=== PATIENT | male | born 1950 | race Caucasian/White ===

== ENCOUNTER 2016-07-10 09:00 | Day surgery (SDC) | payer MEDICARE ==
[2016-07-05 15:54] VITALS: BMI 24.3
[~2016-07-10 09:00] MED LIST: LACTATED RINGERS 1,000 ML IV SCH
[2016-07-10] MEDS ORDERED: LIDOCAINE 1% 20 ML VIAL (10MG/ML) FOR IV START INTRADERMA ONE (11:52)
[2016-07-10 12:00] VITALS: RESP 16; TEMP 97.7
[2016-07-10] MEDS ORDERED: PROPOFOL 10 MG/ML 20 ML VIAL IV ONE (12:55)
--- NOTE | 2016-07-10 12:58 | P.GSHP ---
History of Present Illness H&P Date: 07/10/16 Chief Complaint: Screening colonoscopy This a 66-year-old male who presents today for screening colonoscopy. Patient states that he has a history of hemorrhoids as had some minor rectal bleeding. Past Medical History Past Medical History: Hyperlipidemia, Hypertension, Myocardial Infarction ([place]) Last Myocardial Infarction Date:: 1990 History of Any Multi-Drug Resistant Organisms: None Reported Past Surgical History: Appendectomy, Heart Catheterization, Tonsillectomy Additional Past Surgical History / Comment(s): colonoscopy; hemorroidectomy Past Anesthesia/Blood Transfusion Reactions: No Reported Reaction Smoking Status: Former smoker Past Alcohol Use History: Daily Additional Past Alcohol Use History / Comment(s): 4 beers a night Past Drug Use History: None Reported - Past Family History Mother Family Medical History: No Reported History Medications and Allergies Home Medications Medication Instructions Recorded Confirmed Type Aspirin [Adult Low Dose Aspirin EC] 81 mg PO DAILY 07/05/16 07/10/16 History Atenolol [Tenormin] 100 mg PO DAILY 07/05/16 07/10/16 History Isosorbide Mononitrate ER [Imdur] 60 mg PO DAILY 07/05/16 07/10/16 History Lisinopril [Zestril] 20 mg PO DAILY 07/05/16 07/10/16 History Lovastatin [Mevacor] 40 mg PO DAILY 07/05/16 07/10/16 History Verapamil HCl [Verapamil ER] 120 mg PO DAILY 07/05/16 07/10/16 History Allergies Allergy/AdvReac Type Severity Reaction Status Date / Time No Known Allergies Allergy Verified 07/05/16 15:47 Surgical - Exam Vital Signs Temp Pulse Resp BP Pulse Ox 97.7 F 54 L 16 188/89 95 07/10/16 11:56 07/10/16 11:56 07/10/16 11:56 07/10/16 11:56 07/10/16 11:56 - General well developed, no distress - Eyes PERRL - ENT normal pinna - Neck no masses - Respiratory normal expansion - Cardiovascular Rhythm: regular - Abdomen Abdomen: soft, non tender Assessment and Plan Plan: History of GI bleed. We'll perform screening colonoscopy.
--- NOTE | 2016-07-10 13:10 | P.OP ---
Date of Procedure: 07/10/16 Preoperative Diagnosis: Screening colonoscopy Postoperative Diagnosis: External hemorrhoids Diverticulosis Procedure(s) Performed: Colonoscopy Anesthesia: MAC Surgeon: Allan Santoro Pathology: none sent Condition: stable Disposition: PACU Description of Procedure: The patient's placed on the endoscopy table in the lateral position. He received IV sedation. Digital rectal exam is performed which revealed external hemorrhoids. The prostate was symmetric without nodules. The flexible colonoscope was then placed patient anus passed throughout the entire colon. The ileocecal valve was visualized. The cecum, ascending and transverse colon appeared normal. In the descending; there is moderate diverticular changes. Scope was then brought back the rectum and this appeared normal. Scope was withdrawn for patient.
[2016-07-10 13:36] VITALS: BP 119/83; PULSE 57
== END 2016-07-10 13:50 | disposition home or self-care (01) ==
LOC: ORWHC2ENDO 09:00
PROVIDERS: ATTEND Surgery
DX: Z12.11 Encounter for screening for malignant neoplasm of colon (principal); K64.4 Residual hemorrhoidal skin tags; I25.10 Atherosclerotic heart disease of native coronary artery without angina pectoris; E78.5 Hyperlipidemia, unspecified; I10 Essential (primary) hypertension; I25.2 Old myocardial infarction; F17.210 Nicotine dependence, cigarettes, uncomplicated; Z79.82 Long term (current) use of aspirin; Z79.899 Other long term (current) drug therapy
CPT/HCPCS: J2704; G0121

== ENCOUNTER → 2016-09-17 | Outpatient (CLI) | payer MEDICARE ==
--- NOTE | 2016-09-17 17:58 | CT ---
EXAMINATION TYPE: CT brain wo con DATE OF EXAM: 09/17/2016 COMPARISON: NONE HISTORY: Memory loss CT DLP: 2247 mGycm Automated exposure control for dose reduction was used. FINDINGS: There is mild cerebral cortical atrophy. There is no mass effect nor midline shift. There is no sign of intracranial hemorrhage. Calvarium is intact. IMPRESSION: MILD ATROPHY. NO ACUTE INTRACRANIAL ABNORMALITY.
--- NOTE | 2016-09-17 18:19 | US ---
EXAMINATION TYPE: US carotid duplex BILAT DATE OF EXAM: 09/17/2016 COMPARISON: NONE CLINICAL HISTORY: R41.3 Memory loss. EXAM MEASUREMENTS: RIGHT: Peak Systolic Velocity (PSV) cm/sec ----- Right CCA: 80.3 ----- Right ICA: 82.2 ----- Right ECA: 61.2 ICA/CCA ratio: 1.0 RIGHT: End Diastole cm/sec ----- Right CCA: 27.3 ----- Right ICA: 33.7 ----- Right ECA: 15.0 LEFT: Peak Systolic Velocity (PSV) cm/sec ----- Left CCA: 77.2 ----- Left ICA: 95.3 ----- Left ECA: 95.3 ICA/CCA ratio: 1.2 LEFT: End Diastole cm/sec ----- Left CCA: 26.7 ----- Left ICA: 35.8 ----- Left ECA: 17.6 VERTEBRALS (direction of flow): Right Vertebral: Antegrade Left Vertebral: Antegrade Moderate amount of plaque visualized in bilateral bulbs. No elevated velocities visualized IMPRESSION: There is antegrade flow in the vertebral arteries. The images and measurements suggest c lose to 50% stenosis in both internal carotid arteries. Criteria for Assigning % of Stenosis / Diameter reduction (Estimation based on the indirect measurements of the internal carotid artery velocities (ICA PSV). 1. Normal (no stenosis)=ICA PSV < 125 cm/s: ratio < 2.0: ICA EDV<40 cm/s. 2. Less than 50% stenosis=ICA PSV < 125 cm/s: ratio < 2.0: ICA EDV<40 cm/s. 3. 50 to 69% stenosis=ICA PSV of 125 to 230 cm/s: ration 2.0 ? 4.0: ICA EDV 40-100 cm/s. 4. Greater than 70% stenosis to near occlusion= ICA PSV > 230 cm/s: ratio > 4.0: ICA EDV > 100 cm/s. 5. Near occlusion= ICA PSV velocities may be low or undetectable: variable ratio and ICA EDV. 6. Total occlusion=unable to detect flow.
== END ==
LOC: RADCTMAIN 17:27
PROVIDERS: ATTEND Family Medicine
DX: I65.23 Occlusion and stenosis of bilateral carotid arteries (principal); G31.9 Degenerative disease of nervous system, unspecified
CPT/HCPCS: 70450; 93880

== ENCOUNTER → 2016-11-28 | Outpatient (CLI) | payer MEDICARE ==
[2016-11-28 18:13] LABS: ANA w/Reflex to Titer NEGATIVE (NEGATIVE)
== END | disposition home or self-care (01) ==
LOC: LABWHC1 11-22 12:49
PROVIDERS: ATTEND Psychiatry & Neurology Neurology
DX: R41.3 Other amnesia (principal); M54.2 Cervicalgia
CPT/HCPCS: 36415; 82550; 82607; 82747; 84439; 84443; 85652; 86038; 86618

== ENCOUNTER → 2018-11-20 | Outpatient (CLI) | payer MEDICARE ==
--- NOTE | 2018-11-20 09:08 | CT ---
EXAMINATION TYPE: CT abdomen pelvis wo con DATE OF EXAM: 11/20/2018 COMPARISON: None HISTORY: 68-year-old male Ventral hernia, diverticulitis CT DLP: 272.2 mGycm. Automated exposure control for dose reduction was used. TECHNIQUE: Contiguous axial scanning of the abdomen and pelvis without IV contrast. Coronal and sagit oniel reconstructions performed. FINDINGS: Heart normal size without pericardial effusion. Some mitral annular and scattered coronary vessel narendra cifications are demonstrated. Irregular 1 cm nodular density left base warrants follow-up. No pleural effusion. Small hiatal hernia. Ovoid 2.7 x 1.4 cm hypodensity anterior left liver lobe shows intermediate attenuation and can be fur ther evaluated with ultrasound. A 1 cm round hypodense lesion just above likely represents a cyst. Gallbladder, right adrenal gland, kidneys, spleen, and pancreas show no gross amount by noncontrast C T. Mild diffuse thickening of the left adrenal gland without discrete nodularity. Moderate atherosclerotic calcifications abdominal aorta and iliac arteries. There is a 2.3 cm focal s accular aneurysm of the proximal right common iliac artery (refer to sagittal image 52). No dilated small bowel, free fluid, or free air. Scattered nonenlarged mesenteric lymph nodes. Appendix not discretely visualized. Scattered multiple moderate stool. Mid to lower descending and si gmoid colonic diverticulosis. No pericolonic inflammatory change. No ventral abdominal wall hernia. Mild circumferential bladder wall thickening. Pelvic fluids. No abnormal fluid collection in the pelv is or pelvic lymphadenopathy. Suggestion of a moderate-sized fluid collection in the upper left hemiscrotum measuring 3.7 cm, refer to axial image 126 and coronal image 26. Bones: Mild degenerative changes of the hips. Moderate to advanced degenerative disc disease mid to l ower lumbar spine along with hypertrophic facet arthropathy. Baastrup's disease L4-L5. IMPRESSION: 1. Left-sided colonic diverticulosis without acute diverticulitis. 2. A 2.7 x 1.4 cm ovoid indeterminate lesion anterior left hepatic lobe. An area of focal fat or com plicated cyst are possibilities. Other etiologies not excluded. Recommend liver ultrasound as an init ial attempt to further characterize. 3. Small hiatal hernia. No ventral abdominal wall hernia. 4. Moderate-sized fluid collection in the upper left hemiscrotum measuring 3.7 cm, possible hydrocel e. If indicated, scrotal ultrasound can further evaluate. 5. A 1 cm irregular nodule at the left base. Three-month follow-up contrast enhanced CT chest recomm ended to reassess. 6. 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 Consider referral to vascular surgery.
== END ==
LOC: RADCTMAIN 08:17
PROVIDERS: ATTEND Surgery Plastic and Reconstructive Surgery
DX: K57.30 Diverticulosis of large intestine without perforation or abscess without bleeding (principal); K44.9 Diaphragmatic hernia without obstruction or gangrene; K92.89 Other specified diseases of the digestive system; I72.3 Aneurysm of iliac artery
CPT/HCPCS: 74176

== ENCOUNTER 2018-12-03 08:18 | Day surgery (SDC) | payer MEDICARE ==
[2018-12-01 10:03] VITALS: BMI 23.9
[~2018-12-03 08:18] MED LIST changes: +DEXAMETHASONE SOD PHOSPHATE 10 MG/ML 1 ML VIAL IV ONE; +LIDOCAINE 1% 20 ML VIAL (10MG/ML) FOR IV START INTRADERMA PRN; +MIDAZOLAM 2 MG/2 ML VIAL IV PRN; +fentaNYL (PF) 50 MCG/ML 2 ML AMP IV PRN
[2018-12-03 08:49] VITALS: TEMP 97.8
--- NOTE | 2018-12-03 08:51 | P.GSHP ---
History of Present Illness H&P Date: 12/03/18 CHIEF COMPLAINT: GERD HISTORY OF PRESENT ILLNESS: The patient is a 68-year-old male who presents reports gastroesophageal reflux disease. Upper endoscopy was offered for further evaluation and management. PAST MEDICAL HISTORY: Please see list. PAST SURGICAL HISTORY: Please see list. MEDICATIONS: Please see list. ALLERGIES: Please see list. SOCIAL HISTORY: No illicit drug use FAMILY HISTORY: No reports of Crohn disease or ulcerative colitis. REVIEW OF ORGAN SYSTEMS: CONSTITUTIONAL: No reports of fevers or chills. GI: Denies any blood in stools or constipation. PHYSICAL EXAM: VITAL SIGNS: Stable GENERAL: Well-developed and pleasant in no acute distress. HEENT: No scleral icterus. Extraocular movements grossly intact. Moist buccal mucosa. NECK: Supple without lymphadenopathy. CHEST: Unlabored respirations. Equal bilateral excursions. CARDIOVASCULAR: Regular rate and rhythm. Distal 2+ pulses. ABDOMEN: Soft, nondistended. MUSCULOSKELETAL: No clubbing, cyanosis, or edema. ASSESSMENT: 1. Gastroesophageal reflux disease PLAN: 1. Recommend proceeding with an upper endoscopy Past Medical History Past Medical History: Hyperlipidemia, Hypertension, Myocardial Infarction ([place]), Osteoarthritis ([place]) Last Myocardial Infarction Date:: 1998 History of Any Multi-Drug Resistant Organisms: None Reported Past Surgical History: Appendectomy, Heart Catheterization, Tonsillectomy Additional Past Surgical History / Comment(s): colonoscopy; hemorroidectomy Past Anesthesia/Blood Transfusion Reactions: No Reported Reaction Past Psychological History: No Psychological Hx Reported Smoking Status: Former smoker Past Alcohol Use History: Daily Additional Past Alcohol Use History / Comment(s): states recently stopped alcohol use, Hx of 4 beers a night, 6 on weekend. QUIT SMOKING 8 MONTHS AGO,SMOKED ON AND OFF SINCE 14 YRS OLD. Past Drug Use History: Marijuana Additional Drug Use History / Comment(s): states no current marijuana use - Past Family History Mother Family Medical History: No Reported History Medications and Allergies Home Medications Medication Instructions Recorded Confirmed Type Aspirin [Adult Low Dose Aspirin EC] 81 mg PO DAILY 07/05/16 12/01/18 History Atenolol [Tenormin] 100 mg PO DAILY 07/05/16 12/01/18 History Isosorbide Mononitrate ER [Imdur] 60 mg PO DAILY 07/05/16 12/01/18 History Lisinopril [Zestril] 20 mg PO DAILY 07/05/16 12/01/18 History Verapamil HCl [Verapamil ER] 120 mg PO DAILY 07/05/16 12/01/18 History Atorvastatin [Lipitor] 40 mg PO DAILY 12/01/18 12/01/18 History Ibuprofen 200 mg PO DIRECTED PRN 12/01/18 12/01/18 History Potassium 99 mg PO DAILY 12/01/18 12/01/18 History Vit A/Vit C/Vit E/Zinc/Copper 1 each PO DAILY 12/01/18 12/01/18 History [Vision Formula Softgel] Allergies Allergy/AdvReac Type Severity Reaction Status Date / Time No Known Allergies Allergy Verified 12/03/18 08:31 Surgical - Exam Vital Signs Temp Pulse Resp BP Pulse Ox 97.8 F 62 16 211/103 97 12/03/18 08:45 12/03/18 08:45 12/03/18 08:45 12/03/18 08:45 12/03/18 08:45
[2018-12-03] MEDS ORDERED: PROPOFOL 10 MG/ML 20 ML VIAL IV ONE (08:56)
--- NOTE | 2018-12-03 09:09 | P.PCN ---
Date of Procedure: 12/03/18 Description of Procedure: PREOPERATIVE DIAGNOSIS: Gastroesophageal reflux disease. POSTOPERATIVE DIAGNOSIS: Gastritis. Gastroesophageal reflux disease. Diaphragmatic hiatal hernia OPERATION: Esophagogastroduodenoscopy with biopsies along antrum. SURGEON: Alva Haider MD ANESTHESIA: MAC. INDICATIONS: The patient is a 68-year-old male who presents with a history of reflux disease. Benefits and risks of the procedure were described. Informed consent was obtained. DESCRIPTION: The patient was brought into the endoscopy suite and laid in the left lateral decubitus position. An Olympus gastroscope was passed along the posterior oropharynx down to the distal esophagus where the squamocolumnar junction was encountered at 37 cm from the incisors. The stomach was entered and no bile reflux was found. Additional findings are listed below. Biopsies with cold forceps were obtained of the antrum. The first through third portion of the duodenum was examined and unremarkable. Retroflexion of the scope confirmed Hill grade 4 lower esophageal valve. The squamocolumnar junction demonstrated LA grade B erosive esophagitis. The stomach was desufflated. The patient tolerated the procedure well. FINDINGS: Squamocolumnar junction 37 cm from the incisors. Diaphragmatic hiatus at 40 cm. Hiatal hernia, 3 cm Hill grade 4 lower esophageal valve. LA grade B erosive esophagitis. No active duodenitis. Chronic gastritis without bleed RECOMMENDATIONS: Upper endoscopy as needed. Plan - Discharge Summary New Discharge Prescriptions: New Omeprazole 20 mg PO DAILY #14 tablet.dr No Action Lisinopril [Zestril] 20 mg PO DAILY Isosorbide Mononitrate ER [Imdur] 60 mg PO DAILY Atenolol [Tenormin] 100 mg PO DAILY Verapamil HCl [Verapamil ER] 120 mg PO DAILY Aspirin [Adult Low Dose Aspirin EC] 81 mg PO DAILY Ibuprofen 200 mg PO DIRECTED PRN PRN Reason: Pain Vit A/Vit C/Vit E/Zinc/Copper [Vision Formula Softgel] 1 each PO DAILY Potassium 99 mg PO DAILY Atorvastatin [Lipitor] 40 mg PO DAILY Discharge Medication List Aspirin [Adult Low Dose Aspirin EC] 81 mg PO DAILY 07/05/16 [History] Atenolol [Tenormin] 100 mg PO DAILY 07/05/16 [History] Isosorbide Mononitrate ER [Imdur] 60 mg PO DAILY 07/05/16 [History] Lisinopril [Zestril] 20 mg PO DAILY 07/05/16 [History] Verapamil HCl [Verapamil ER] 120 mg PO DAILY 07/05/16 [History] Atorvastatin [Lipitor] 40 mg PO DAILY 12/01/18 [History] Ibuprofen 200 mg PO DIRECTED PRN 12/01/18 [History] Potassium 99 mg PO DAILY 12/01/18 [History] Vit A/Vit C/Vit E/Zinc/Copper [Vision Formula Softgel] 1 each PO DAILY 12/01/18 [History] Omeprazole 20 mg PO DAILY #14 tablet. 12/03/18 [Rx] Follow up Appointment(s)/Referral(s): Alva Haider MD [STAFF PHYSICIAN] - 12/16/18 Patient Instructions/Handouts: Hiatal Hernia (DC), Gastritis (DC), Gastroesophageal Reflux Disease (DC) Discharge Disposition: HOME SELF-CARE
[2018-12-03 09:26] VITALS: RESP 17
[2018-12-03 09:51] VITALS: BP 122/75; PULSE 59
== END 2018-12-03 09:49 | disposition home or self-care (01) ==
LOC: ORWHC2ENDO 08:18
PROVIDERS: ATTEND Surgery Plastic and Reconstructive Surgery
DX: K21.0 Gastro-esophageal reflux disease with esophagitis (principal); K31.9 Disease of stomach and duodenum, unspecified; K29.70 Gastritis, unspecified, without bleeding; K44.9 Diaphragmatic hernia without obstruction or gangrene; E78.5 Hyperlipidemia, unspecified; I10 Essential (primary) hypertension; I25.2 Old myocardial infarction; M19.90 Unspecified osteoarthritis, unspecified site; Z79.82 Long term (current) use of aspirin; Z79.899 Other long term (current) drug therapy; Z87.891 Personal history of nicotine dependence; Z79.1 Long term (current) use of non-steroidal anti-inflammatories (NSAID)
CPT/HCPCS: 88305; 43239; J2704

== ENCOUNTER → 2019-01-15 | Outpatient (CLI) | payer MEDICARE ==
[2019-01-15 14:43] LABS: African American GFR (CKD) >90 (>60 ml/min/1.73 sqM); Blood Urea Nitrogen 13 mg/dL (9-20)
--- NOTE | 2019-01-15 16:06 | CT ---
EXAMINATION TYPE: CT chest w con DATE OF EXAM: 01/15/2019 COMPARISON: Correlation CT abdomen and pelvis 11/20/2018 HISTORY: 68-year-old male Lung nodule TECHNIQUE: Contiguous axial scanning of the chest after the administration of 100 mL of Isovue 300. Coronal/sagittal reconstructions performed. CT DLP: 442mGycm. Automatic exposure control utilized for a dose reduction. FINDINGS: Heart normal size without pericardial effusion. Extensive three-vessel coronary artery disease is pre sent. Upper ascending aorta is ectatic at 3.5 cm. Mild atherosclerotic arch calcifications. Conventional ar ch vessel branching anatomy. No thoracic lymphadenopathy by CT size criteria. Moderate upper lung centrilobular emphysema. Mild diffuse bronchial wall thickening. Tiny 2 mm subpleural pulmonary nodule peripheral right upper lobe, axial image 15. A 1 cm irregular pulmonary nodule at the peripheral left lower lobe possibly with a central area of c avitation remains unchanged from 11/20/2018. There is strandy atelectasis or scarring inferior lingula . No consolidation or pleural effusion. Tiny hiatal hernia. Focal ovoid hypodensity anterior left liver lobe measures 4.0 x 1.8 cm versus 3.7 x 1.4 cm on 11/20/2018. This demonstrates intermediate attenuation and may represent a complicated cy st and can be confirmed with ultrasound. Bones: Suspect old healed sternal fracture. No osseous destructive process. IMPRESSION: 1. COPD with moderate upper lung emphysema. 2. Small 1 cm cavitary nodule peripheral left base. Overall size and morphology is unchanged from 2 m onths prior. Continued follow-up recommended. Neoplastic and atypical infectious etiologies remain in the differential at this time. 3. CAD. 4. An ovoid hypodense lesion anterior left liver lobe is slightly larger at 4.0 x 1.8 cm (versus 3.7 x 1.4 mm, 2 months ago). This still may represent a complicated cyst. Ultrasound should confirm.
== END | disposition home or self-care (01) ==
LOC: RADCTMAIN 13:52
PROVIDERS: ATTEND Internal Medicine Critical Care Medicine
DX: J43.9 Emphysema, unspecified (principal); I25.10 Atherosclerotic heart disease of native coronary artery without angina pectoris; R91.1 Solitary pulmonary nodule
CPT/HCPCS: 82565; 84520; 71260; 36415; Q9967

== ENCOUNTER → 2019-01-20 | Outpatient (CLI) | payer MEDICARE ==
--- NOTE | 2019-01-20 10:51 | US ---
EXAMINATION TYPE: US liver DATE OF EXAM: 01/20/2019 COMPARISON: CT 2019 CLINICAL HISTORY: K76.9 LIVER DISEASE. Liver lesion seen on recent CT, patient not NPO EXAM MEASUREMENTS: Liver Length: 14.4 cm Gallbladder Wall: 0.2 cm CBD: 0.5 cm Right Kidney: 10.8 x 4.3 x 4.3 cm Pancreas: visualized portions wnl, limited by overlying midline bowel gas Liver: 2.8 x 1.5 x 4.3cm hypoechoic lesion anterior left lobe. This is avascular. However only minim al increased or transmission is seen in portions of this appears solid. There is also subtle contour abnormality on sagittal image probably not significant stenosis Gallbladder: wnl Evidence for sonographic Johnson's sign: no CBD: wnl Right Kidney: wnl IMPRESSION: The proximally 4.3 cm hepatic mass does not have clear characteristics of a complicated c yst. Given the interval growth since 11/20/2018 further evaluation is recommended. More definitive laura racterization could be performed with enhanced abdominal MRI or PET/CT. Alternatively percutaneous bi opsy could be pursued if the patient cannot undergo MRI.
== END | disposition home or self-care (01) ==
LOC: RADUSWWP 09:33
PROVIDERS: ATTEND Internal Medicine Critical Care Medicine
DX: R16.0 Hepatomegaly, not elsewhere classified (principal)
CPT/HCPCS: 76705

== ENCOUNTER → 2019-01-27 | Outpatient (CLI) | payer MEDICARE ==
[2019-01-27 17:13] LABS: ALT 15 U/L (10-49); AST 19 U/L (14-35); Alkaline Phosphatase 69 U/L (41-126); Bilirubin, Conjugated <0.20 mg/dL (0.20-0.40); Globulin 2.1 g/dL (1.6-3.3); Total Bilirubin 0.6 mg/dL (0.2-1.2); Total Protein 6.3 g/dL (6.2-8.2)
== END | disposition home or self-care (01) ==
LOC: LABWHC1 09:19
PROVIDERS: ATTEND Internal Medicine Critical Care Medicine
DX: R16.0 Hepatomegaly, not elsewhere classified (principal)
CPT/HCPCS: 36415; 80076; 82105

== ENCOUNTER → 2019-02-02 | Outpatient (CLI) | payer MEDICARE ==
--- NOTE | 2019-02-03 04:42 | MR ---
EXAMINATION TYPE: MR liver wo/w con DATE OF EXAM: 02/02/2019 COMPARISON: CT scan 11/20/2018 HISTORY: Abn. CT CONTRAST: Standard multiplanar, multisequence MRI departmental protocol utilizing 7 mL intravenous Gadavist yeison olinium contrast. FINDINGS: There is multilobulated lesion in the anterior right lobe of the liver. This has very high signal on the T2 images and overall measures 3.6 x 2 cm. There are internal septations or is conglome ration of smaller lesions. There is also 12 mm high signal rounded lesion within wall in the anterior right lobe of the liver. The contrast images show the smaller rounded lesion nonenhancing. This has low signal on T1 images. The larger lesion has slight increased signal on the noncontrast images and contrast images show some progressive mild enhancement. The lesions are bright on the out of phase images that suggests no fat content. There is a 5 mm high signal lesion in the lateral right lobe of the liver on the T2 images that is no nenhancing and consistent with a simple cyst. The spleen is intact. Kidneys have normal size and contour. There is normal contrast opacification. T here is no hydronephrosis. There is no retroperitoneal adenopathy. The pancreas appears normal. Pancr eatic duct appears normal. Bile ducts are not dilated. There is no ascites. There is no evidence of p leural effusion. IMPRESSION: There is a 12 mm cyst in the anterior right lobe of the liver. There is a multilobulated larger lesion in the subcapsular anterior right lobe of the liver that has very high signal on T2 images that suggest benign etiology. The lesion shows some mostly mild delayed contrast enhancement at 5 minutes. I think that small portion of the lesion is simple cystic and the bulk of the lesion is an atypical hemangioma. I do not suspect a malignant tumor.
== END | disposition home or self-care (01) ==
LOC: RADMRIMAIN 19:51
PROVIDERS: ATTEND Internal Medicine Critical Care Medicine
DX: K76.89 Other specified diseases of liver (principal); K76.9 Liver disease, unspecified
CPT/HCPCS: 74183; A9585

== ENCOUNTER 2019-05-01 05:57 | Day surgery (SDC) | payer MEDICARE ==
[2019-04-29 15:39] VITALS: BMI 25.7
[~2019-05-01 05:57] MED LIST changes: +HEPARIN SODIUM,PORCINE 5,000 UNIT/ML 1 ML VIAL SQ ONE; -LACTATED RINGERS 1,000 ML IV SCH; -LIDOCAINE 1% 20 ML VIAL (10MG/ML) FOR IV START INTRADERMA PRN; +ONDANSETRON 4 MG/2 ML VIAL IVP ONE; -fentaNYL (PF) 50 MCG/ML 2 ML AMP IV PRN
[2019-05-01] MEDS: LIDOCAINE 1% (10MG/ML) FOR IV START INTRADERMA ONE ×2 (06:30→06:35)
[2019-05-01] MEDS: LACTATED RINGERS 1,000 ML IV SCH ×3 (06:30→07:30)
[2019-05-01] MEDS ORDERED: GABAPENTIN 300 MG CAP PO STA (06:52)
[2019-05-01] MEDS ORDERED: ACETAMINOPHEN TAB 500 MG TAB PO STA (06:52)
[2019-05-01] MEDS ORDERED: TAMSULOSIN 0.4 MG CAP.ER.24H PO STA (06:52)
[2019-05-01] MEDS ORDERED: fentaNYL (PF) 50 MCG/ML 2 ML AMP IVP ONE (07:01)
[2019-05-01] MEDS ORDERED: MIDAZOLAM 2 MG/2 ML VIAL IVP ONE (07:01)
[2019-05-01] MEDS ORDERED: PROPOFOL 10 MG/ML 20 ML VIAL IV ONE (07:21)
[2019-05-01] MEDS ORDERED: NEOSTIGMINE 1 MG/ML 10 ML VIAL ONE (07:21)
[2019-05-01] MEDS ORDERED: DEXAMETHASONE SOD PHOSPHATE 4 MG/ML 1 ML VIAL ONE (07:21)
[2019-05-01] MEDS ORDERED: LIDOCAINE 1% INJ 10MG/ML (20 ML MDV) ONE (07:21)
[2019-05-01] MEDS ORDERED: fentaNYL (PF) 50 MCG/ML 2 ML AMP ONE (07:21)
[2019-05-01] MEDS ORDERED: ROCURONIUM BROMIDE 10 MG/ML 5 ML VIAL IV ONE (07:21)
[2019-05-01] MEDS ORDERED: GLYCOPYRROLATE 0.2 MG/ML 2 ML VIAL ONE (07:21)
[2019-05-01] MEDS ORDERED: SUCCINYLCHOLINE CHLORIDE 100 MG/5 ML SYR IV ONE (07:21)
[2019-05-01] MEDS ORDERED: ROPIVACAINE 5 MG/ML 30 ML VIAL ONE (07:21)
[2019-05-01] MEDS ORDERED: MIDAZOLAM 2 MG/2 ML VIAL ONE (07:21)
--- NOTE | 2019-05-01 07:32 | P.GSHP ---
History of Present Illness H&P Date: 05/01/19 CHIEF COMPLAINT: Inguinal hernia, left HISTORY OF PRESENT ILLNESS: The patient is a 69-year-old male who presents with a history of swelling and pain along the left groin. He's noted increased swelling including pain of the area. Now he presents for repair of his inguinal hernia. PAST MEDICAL HISTORY: Please see list. PAST SURGICAL HISTORY: Please see list. MEDICATIONS: Please see list. ALLERGIES: Please see list. SOCIAL HISTORY: No illicit drug use FAMILY HISTORY: No reports of Crohn disease or ulcerative colitis. REVIEW OF ORGAN SYSTEMS: CONSTITUTIONAL: No reports of fevers or chills. No reports of weight loss despite prior attempts. GI: Denies any blood in stools or constipation. PHYSICAL EXAM: VITAL SIGNS: Stable GENERAL: Well-developed pleasant male in no acute distress. HEENT: No scleral icterus. Extraocular movements grossly intact. Moist buccal mucosa. NECK: Supple without lymphadenopathy. CHEST: Unlabored respirations. Equal bilateral excursions. CARDIOVASCULAR: Regular rate and rhythm. Distal 2+ pulses. ABDOMEN: Soft, nondistended. No peritoneal signs. Palpable defect of the left groin. MUSCULOSKELETAL: No clubbing, cyanosis, or edema. ASSESSMENT: 1. Inguinal hernia, rleft PLAN: 1. Recommend proceeding with a robotic inguinal repair with mesh with possible bilateral approach. 2. Benefits and risks of surgical intervention was discussed including possibility of open technique. 3. DVT prophylaxis. 4. Antibiotic prophylaxis. Past Medical History Past Medical History: Hyperlipidemia, Hypertension, Myocardial Infarction ([place]), Osteoarthritis (OA), Skin Disorder Additional Past Medical History / Comment(s): hx eczema, Last Myocardial Infarction Date:: 1998 History of Any Multi-Drug Resistant Organisms: None Reported Past Surgical History: Adenoidectomy, Appendectomy, Heart Catheterization, Tonsillectomy Additional Past Surgical History / Comment(s): colonoscopy; hemorroidectomy Past Anesthesia/Blood Transfusion Reactions: No Reported Reaction Smoking Status: Former smoker - Past Family History Mother Family Medical History: No Reported History Medications and Allergies Home Medications Medication Instructions Recorded Confirmed Type Aspirin [Adult Low Dose Aspirin EC] 81 mg PO DAILY 07/05/16 05/01/19 History Atenolol [Tenormin] 100 mg PO DAILY 07/05/16 05/01/19 History Isosorbide Mononitrate ER [Imdur] 60 mg PO DAILY 07/05/16 05/01/19 History Lisinopril [Zestril] 20 mg PO DAILY 07/05/16 05/01/19 History Verapamil HCl [Verapamil ER] 120 mg PO DAILY 07/05/16 05/01/19 History Atorvastatin [Lipitor] 40 mg PO DAILY 12/01/18 05/01/19 History Potassium 99 mg PO DAILY 12/01/18 05/01/19 History Vit A/Vit C/Vit E/Zinc/Copper 1 each PO DAILY 12/01/18 05/01/19 History [Vision Formula Softgel] Allergies Allergy/AdvReac Type Severity Reaction Status Date / Time No Known Allergies Allergy Verified 05/01/19 06:35 Surgical - Exam Vital Signs Temp Pulse Resp BP Pulse Ox 98.4 F 65 18 185/97 94 L 05/01/19 06:28 05/01/19 06:28 05/01/19 06:28 05/01/19 06:28 05/01/19 06:28
--- NOTE | 2019-05-01 07:37 | P.ANPRN ---
Procedure Note - Anesthesia - Nerve Block Performed Left Transversus Abdominis Single Time Out Performed: Yes Date of Procedure: 05/01/19 Procedure Start Time: 07:00 Procedure Stop Time: 07:08 Location of Patient: PreOp Indication: Requested by Surgeon Specifically requested for management of pain by DrAlma: Alva Haidre Sedation Type: Sedate with meaningful contact maintained Preparation: Sterile Prep Position: Supine Needle Types: Pajunk Needle Gauge: 21 Ultrasound used to visualize needle placement: Yes Ultrasound used to observe medication spread: Yes Injectate: 0.5% Ropivacaine (see comment for volume) (Dexamethasone 4 mg) Blood Aspirated: No Pain Paresthesia on Injection Noted: No Resistance on Injection: Normal Image Stored and Saved: Yes Events: Uneventful and Well Tolerated
[2019-05-01] MEDS ORDERED: LIDOCAINE 1%-EPI 1:100,000 20 ML VIAL SQ ONE (08:01)
[2019-05-01] MEDS ORDERED: LACTATED RINGERS 1,000 ML IV ONE (09:01)
[2019-05-01] MEDS ORDERED: HYDROmorphone 1 MG/ML 1 ML SYRINGE IVP PRN (09:14)
[2019-05-01] MEDS ORDERED: KETOROLAC 30 MG/ML 1 ML VIAL IVP PRN (09:14)
[2019-05-01] MEDS ORDERED: HYDROcodone/APAP 5-325MG 1 EACH TAB PO PRN (09:14)
[2019-05-01 09:27] VITALS: TEMP 97.9
[2019-05-01] MEDS: HYDROmorphone 0.5 MG/0.5 ML SYRINGE IVP PRN ×2 (09:42→09:50)
[2019-05-01] MEDS ORDERED: SIMETHICONE 80 MG CHEWABLE PO ONE (10:00)
[2019-05-01 11:10] VITALS: BP 100/62; PULSE 53; RESP 16
--- NOTE | 2019-05-01 11:23 | P.OP ---
Date of Procedure: 05/01/19 Description of Procedure: SURGEON: ALVA HAIDER MD PREOPERATIVE DIAGNOSES: 1. Initial left inguinal hernia 2. History of ischemic cardiomyopathy 3. Hypertensive heart disease 4. Hyperlipidemia 5. History of bilateral hydroceles POSTOPERATIVE DIAGNOSES: 1. Initial left inguinal hernia, indirect 3 cm, reducible 2. History of ischemic cardiomyopathy 3. Hypertensive heart disease 4. Hyperlipidemia 5. History of bilateral hydroceles 6. Left inguinal lipoma, 3-cm OPERATION: 1. Robotic assisted da Diandra Xi laparoscopic reduction and repair of left inguinal hernia repair with ventralight ST mesh, 11.4 cm. 2. Excision of left inguinal subfascial lipoma 3 cm Anesthesia: GETA, local Estimated Blood Loss (ml): 5 Pathology: other (Left inguinal sac and inguinal lipoma, left) Condition: stable COMPLICATIONS: None. Operative Findings: 1. Large left inguinal indirect hernia, 3 cm, Nyhus type II 2. Left inguinal lipoma, resected 3-cm INDICATIONS: The patient is a 69-year-old gentleman who presents with history of left inguinal hernia. Now presents for definitive surgical intervention. Laparoscopic versus open and robotic approaches were discussed. Benefits and risks including bleeding, infection, injury to the vas deferens as well as sterility and chronic groin pain were reviewed. Placement of mesh was also described. Informed consent was obtained. DESCRIPTION: In the preoperative area, the patient was marked with indelible marker along the left groin. The patient was brought to the operating room and laid in supine position. After general induction, the abdomen had been prepped and draped in standard sterile fashion. Ioban draping was also placed. Prior to incision, a timeout protocol was confirmed with surgical team regarding patient's name including procedures to be performed and location along the left groin. Initial positioning for the robotic assisted ports were selected whereby 20 cm superior to the target anatomy, 0 degree 5 mm laparoscopic trocar entry was performed at the left upper quadrant. The abdomen was insufflated to 15 mmHg which he had tolerated well. Diagnostic laparoscopy demonstrated large defect along the left groin, indirect. The right groin was unremarkable. Next, along the epigastrium, 8 mm robot trocar was placed. An 8-mm robotic trocar was placed under direct visualization at the right upper quadrant. The 5 mm port was exchanged for a 8 mm trocar. All trocars were positioned between 8 to 10-cm apart from each other. The patient was placed in steep reverse Trendelenburg position, 10. The Syncurity XI robot was primed, draped, prepared for docking along the upper abdomen of the patient. I then went to the Syncurity Xi console. The clinical education assistant was at bedside for exchange of the robot arms and equipment. At the left groin, over 3 cm direct inguinal hernia was identified. The hernia sac was evaginated whereby the peritoneum was scored using Endo scissors with cautery. An inguinal lipoma was also identified 3 cm resected from the inguinal canal. The hernia sac had reached to the scrotum and was transected using scissors. Once completely reduced into the abdominal cavity, the peritoneal sac of the hernia was identified. The sac was resected and then passed off for further pathological analysis. The size of the hernia defect was 3 cm with intraoperative films obtained. Using a #1 nonabsorbable VLOC, the peritoneal defect of the left inguinal hernia site was closed using a pursestring suture. The defect was found to be completely closed with complete reduction of the left inguinal hernia was confirmed. As an onlay, an 11.[address] mesh by [employer] was cut in half and entered into the abdominal cavity via the 8 mm trocar. The mesh was tacked to the pelvis using #1 VLOC nonabsorbable sutures. The robot was undocked from the patient's bedside. I then rescrubbed into the case. Insufflation was released from the abdominal cavity and all instruments were removed from the abdominal cavity. Additional palm pressure was applied along the left groin as well as releasing any air along the scrotum and left groin. The rest of incisions were reapproximated using 4-0 Monocryl in a running subcuticular fashion. Local anesthetic was placed along the incision including for a groin block. Incisions were cleansed using dilute hydrogen peroxide. Liquid glue was applied to the skin. At the end of the procedure, the needle, sponge and instrument counts had been verified correct by the surgical oncologist. The patient had tolerated the procedure well and was taken to the postanesthesia care unit in stable condition. Intraoperative findings were described to the patient's family who were pleased with the level of care. Plan - Discharge Summary Discharge Rx Participant: No New Discharge Prescriptions: New Tamsulosin [Flomax] 0.4 mg PO DAILY #5 cap.er.24h Ibuprofen [Motrin] 600 mg PO Q8HR PRN #30 tab PRN Reason: Pain Acetaminophen Tab [Tylenol Tab] 1,000 mg PO Q6HR PRN #30 tablet Continue Lisinopril [Zestril] 20 mg PO DAILY Isosorbide Mononitrate ER [Imdur] 60 mg PO DAILY Atenolol [Tenormin] 100 mg PO DAILY Verapamil HCl [Verapamil ER] 120 mg PO DAILY Aspirin [Adult Low Dose Aspirin EC] 81 mg PO DAILY Vit A/Vit C/Vit E/Zinc/Copper [Vision Formula Softgel] 1 each PO DAILY Potassium 99 mg PO DAILY Atorvastatin [Lipitor] 40 mg PO DAILY Discharge Medication List Aspirin [Adult Low Dose Aspirin EC] 81 mg PO DAILY 07/05/16 [History] Atenolol [Tenormin] 100 mg PO DAILY 07/05/16 [History] Isosorbide Mononitrate ER [Imdur] 60 mg PO DAILY 07/05/16 [History] Lisinopril [Zestril] 20 mg PO DAILY 07/05/16 [History] Verapamil HCl [Verapamil ER] 120 mg PO DAILY 07/05/16 [History] Atorvastatin [Lipitor] 40 mg PO DAILY 12/01/18 [History] Potassium 99 mg PO DAILY 12/01/18 [History] Vit A/Vit C/Vit E/Zinc/Copper [Vision Formula Softgel] 1 each PO DAILY 12/01/18 [History] Acetaminophen Tab [Tylenol Tab] 1,000 mg PO Q6HR PRN #30 tablet 05/01/19 [Rx] Ibuprofen [Motrin] 600 mg PO Q8HR PRN #30 tab 05/01/19 [Rx] Tamsulosin [Flomax] 0.4 mg PO DAILY #5 cap.er.24h 05/01/19 [Rx] Follow up Appointment(s)/Referral(s): Alva Haider MD [STAFF PHYSICIAN] - 05/05/19 Patient Instructions/Handouts: Laparoscopic Herniorrhaphy (IP), Inguinal Hernia Repair (GEN) Activity/Diet/Wound Care/Special Instructions: No lifting over 10 pounds in 2 weeks until May 14. July shower. No bath tub soaks for two weeks until May 14 Diet as tolerated. No driving while on narcotics. Use Tylenol and ibuprofen or Aleve scheduled for the next 24-48 hours for best pain relief. Use ice along incisions for the today to prevent swelling. HAD MOTRIN (IV TORADOL AT HOSPITAL) AT 9:31 HAD TYLENOL 1000MG AT HOSPITAL AT 0725 Discharge Disposition: HOME SELF-CARE
== END 2019-05-01 11:19 | disposition home or self-care (01) ==
LOC: OR 05:57
PROVIDERS: ATTEND Surgery Plastic and Reconstructive Surgery
DX: K40.90 Unilateral inguinal hernia, without obstruction or gangrene, not specified as recurrent (principal); D17.5 Benign lipomatous neoplasm of intra-abdominal organs; N43.3 Hydrocele, unspecified; I11.9 Hypertensive heart disease without heart failure; I25.10 Atherosclerotic heart disease of native coronary artery without angina pectoris; I25.5 Ischemic cardiomyopathy; I25.2 Old myocardial infarction; E78.2 Mixed hyperlipidemia; M19.90 Unspecified osteoarthritis, unspecified site; Z79.82 Long term (current) use of aspirin; Z79.899 Other long term (current) drug therapy; Z87.891 Personal history of nicotine dependence; Z98.61 Coronary angioplasty status; Z90.49 Acquired absence of other specified parts of digestive tract; Z90.89 Acquired absence of other organs; Z87.2 Personal history of diseases of the skin and subcutaneous tissue; Z82.49 Family history of ischemic heart disease and other diseases of the circulatory system
CPT/HCPCS: 49650; 64486; 88304; 88302; C1781; J2250; J1644; J1100 ×2; J2710; J0690; J2405; J2001; J3010; J1885; J2795; J0330; J2704; J1170; 64488

== ENCOUNTER 2019-09-24 10:04 | Emergency (ER) | payer MEDICARE ==
[2019-09-24 10:32] VITALS: RESP 18; TEMP 98.2
--- NOTE | 2019-09-24 11:12 | ED ---
General Adult HPI - General Chief complaint: Extremity Injury, Upper Stated complaint: Fall-Hand Injury Time Seen by Provider: 09/24/19 10:39 Source: patient, RN notes reviewed, old records reviewed Mode of arrival: ambulatory Limitations: no limitations - History of Present Illness Initial comments: Is a 69-year-old male who presents to the emergency department today for evaluation for left hand and wrist pain. Patient reports that he tripped over a dog leash in his backyard yesterday falling. Caused an abrasion over the right knee and broke he believes his left second toe. Reports some bruising. He states his pain is mainly in the left hand and pain with range of motion over the fourth and fifth carpal. - Related Data Home Medications Medication Instructions Recorded Confirmed Aspirin [Adult Low Dose Aspirin EC] 81 mg PO DAILY 07/05/16 05/01/19 Atenolol [Tenormin] 100 mg PO DAILY 07/05/16 05/01/19 Isosorbide Mononitrate ER [Imdur] 60 mg PO DAILY 07/05/16 05/01/19 Verapamil HCl [Verapamil ER] 120 mg PO DAILY 07/05/16 05/01/19 lisinopriL [Zestril] 20 mg PO DAILY 07/05/16 05/01/19 Atorvastatin [Lipitor] 40 mg PO DAILY 12/01/18 05/01/19 Potassium 99 mg PO DAILY 12/01/18 05/01/19 Vit A/Vit C/Vit E/Zinc/Copper 1 each PO DAILY 12/01/18 05/01/19 [Vision Formula Softgel] Previous Rx's Medication Instructions Recorded Acetaminophen Tab [Tylenol Tab] 1,000 mg PO Q6HR PRN #30 tablet 05/01/19 Ibuprofen [Motrin] 600 mg PO Q8HR PRN #30 tab 05/01/19 Tamsulosin [Flomax] 0.4 mg PO DAILY #5 cap.er.24h 05/01/19 Ibuprofen [Motrin] 600 mg PO Q8HR PRN #20 tab 09/24/19 Allergies Allergy/AdvReac Type Severity Reaction Status Date / Time No Known Allergies Allergy Verified 09/24/19 10:32 Review of Systems ROS Statement: Those systems with pertinent positive or pertinent negative responses have been documented in the HPI. ROS Other: All systems not noted in ROS Statement are negative. Past Medical History Past Medical History: Hyperlipidemia, Hypertension, Myocardial Infarction ([place]), Osteoarthritis (OA) Additional Past Medical History / Comment(s): hx eczema, Last Myocardial Infarction Date:: 1998 History of Any Multi-Drug Resistant Organisms: None Reported Past Surgical History: Appendectomy, Heart Catheterization, Hernia Repair, Tonsillectomy Additional Past Surgical History / Comment(s): colonoscopy; hemorroidectomy Past Anesthesia/Blood Transfusion Reactions: No Reported Reaction Past Psychological History: No Psychological Hx Reported Smoking Status: Former smoker Past Alcohol Use History: Occasional Past Drug Use History: Marijuana - Past Family History Mother Family Medical History: No Reported History General Exam - General Exam Comments Initial Comments: 6-year-old male. Alert and oriented 3. Limitations: no limitations General appearance: alert, in no apparent distress Head exam: Present: atraumatic, normocephalic, normal inspection Eye exam: Present: normal appearance, PERRL, EOMI. Absent: scleral icterus, conjunctival injection, periorbital swelling ENT exam: Present: normal exam, mucous membranes moist Neck exam: Present: normal inspection. Absent: tenderness, meningismus, lymphadenopathy Respiratory exam: Present: normal lung sounds bilaterally. Absent: respiratory distress, wheezes, rales, rhonchi, stridor Cardiovascular Exam: Present: regular rate, normal rhythm, normal heart sounds. Absent: systolic murmur, diastolic murmur, rubs, gallop, clicks GI/Abdominal exam: Present: soft, normal bowel sounds. Absent: distended, tenderness, guarding, rebound, rigid Extremities exam: Present: normal inspection, full ROM, normal capillary refill. Absent: tenderness, pedal edema, joint swelling, calf tenderness Left Elbow exam: Present: normal inspection, full ROM Forearm Wrist exam: Present: tenderness, swelling (distal radius and ulna, echymonsis over 3-5 digits). Absent: normal inspection, full ROM Neuro motor exam: Present: wrist extension intact, thumb opposition intact Neurosensory exam: Present: 2-point discrimination Vascular: Present: normal capillary refill Back exam: Present: normal inspection Neurological exam: Present: alert, oriented X3, CN II-XII intact Psychiatric exam: Present: normal affect, normal mood Skin exam: Present: warm, dry, intact, normal color. Absent: rash Course Vital Signs 09/24/19 09/24/19 09/24/19 10:28 11:09 11:39 Temperature 98.2 F Pulse Rate 60 55 L 56 L Respiratory 18 18 18 Rate Blood Pressure 169/105 187/117 204/110 O2 Sat by Pulse 95 96 96 Oximetry 09/24/19 12:04 Temperature Pulse Rate Respiratory Rate Blood Pressure 195/110 O2 Sat by Pulse Oximetry Procedures - Orthopedic Splinting/Casting Injury #1 Side: left Upper Extremity Injury Location: wrist Upper Extremity Immobilizer: volar splint, Aleks wrap, synthetic pre-padded splint Medical Decision Making - Medical Decision Making 6-year-old male presents emergency department today for trip and fall and left wrist pain and swelling. X-rays today show no acute fracture however pain symptoms persist up in 7-10 days. Extensive arthritic changes. Patient is placed in a volar splint due to swelling and pain with range of motion. Advised following up with orthopedic. - Radiology Data Radiology results: report reviewed X-ray shows no definite acute fracture dislocation if symptoms persist follow-up study in 7-10 days suggested. Severe arthropathy growing for a arthritis. Wrist fracture shows no acute fracture dislocation symptoms persist follow-up in 7-10 days suggested. Disposition Clinical Impression: Wrist contusion, Hand swelling, Fall Disposition: HOME SELF-CARE Condition: Good Instructions (If sedation given, give patient instructions): Wrist Injury (ED), Hand Sprain (ED) Additional Instructions: Remain in the splint until seen by orthopedic. Taking Tylenol and Motrin for pain. Return to the emergency department if any alarming signs or symptoms occur. Prescriptions: Ibuprofen [Motrin] 600 mg PO Q8HR PRN #20 tab PRN Reason: Pain Is patient prescribed a controlled substance at d/c from ED?: No Referrals: Arnol Aguilera MD [Primary Care Provider] - 1-2 days Guanakito Johnson MD [STAFF PHYSICIAN] - 1-2 days Time of Disposition: 12:04
[2019-09-24] MEDS ORDERED: atenoloL 50 MG TAB PO STA (11:15)
--- NOTE | 2019-09-24 11:16 | XR ---
EXAMINATION TYPE: XR hand complete LT DATE OF EXAM: 09/24/2019 COMPARISON: NONE HISTORY: Pain TECHNIQUE: Three views are submitted. FINDINGS: The osseous structures are intact. Arthropathy of the DIP joints and severe arthropathy of the third MCP joint. . Severe arthropathy of the scaphoid trapezial joint. Benign-appearing geode in the lunate. IMPRESSION: 1. No definite acute fracture or dislocation if symptoms persist, follow-up study in 7 to 10 days wo uld be suggested 2. Severe arthropathy correlate for osteoarthritis.
--- NOTE | 2019-09-24 11:19 | XR ---
EXAMINATION TYPE: XR wrist complete LT DATE OF EXAM: 09/24/2019 COMPARISON: 09/24/2019 x-ray of the hand HISTORY: Pain TECHNIQUE: Four views submitted. FINDINGS: The osseous structures are intact. Severe arthropathy of the trapezial scaphoid joint. Chondrocalcino sis noted. IMPRESSION: 1. No definite acute fracture or dislocation if symptoms persist, follow-up study in 7 to 10 days wo uld be suggested
[2019-09-24 11:40] VITALS: PULSE 56
[2019-09-24] MEDS ORDERED: ACET/COD 300 MG/30 MG STARTER PACK 6 TAB BTL PO STA (12:04)
[2019-09-24 12:05] VITALS: BP 195/110
--- NOTE | 2019-09-25 08:17 | CDI ---
Dear Janelle Tim PA-C, PAC Please provide type of splint applied Thank you, Memo Fregoso [employer] If you have any questions, please contact Tourist Guide at [phone] [facility]
== END 2019-09-24 12:08 | disposition home or self-care (01) ==
LOC: EC 10:04
DX: S60.212A Contusion of left wrist, initial encounter (principal); S80.211A Abrasion, right knee, initial encounter; E78.5 Hyperlipidemia, unspecified; I10 Essential (primary) hypertension; I25.2 Old myocardial infarction; Z87.39 Personal history of other diseases of the musculoskeletal system and connective tissue; Z95.818 Presence of other cardiac implants and grafts; Z87.891 Personal history of nicotine dependence; Z79.82 Long term (current) use of aspirin; Z79.899 Other long term (current) drug therapy; W18.09XA Striking against other object with subsequent fall, initial encounter; Y92.89 Other specified places as the place of occurrence of the external cause
CPT/HCPCS: 29125; 99284

== ENCOUNTER 2020-05-30 17:14 | Inpatient (IN) | payer MEDICARE ==
--- NOTE | 2020-05-30 18:58 | ED ---
General Adult HPI - General Chief complaint: Arrhythmia/Palpitations Stated complaint: High BP & HR sent by PCP Time Seen by Provider: 05/30/20 18:20 Source: patient, RN notes reviewed Mode of arrival: ambulatory Limitations: no limitations - History of Present Illness Initial comments: Patient is a pleasant 70-year-old male presenting to the emergency department with concern for arrhythmia. Patient only complains of some mild fatigue recently. Patient went to his doctor and was found to be in atrial fibrillation. No history of previous. Patient denies palpitations. No chest pain. No dyspnea or exertional dyspnea. No leg swelling or calf pain. - Related Data Home Medications Medication Instructions Recorded Confirmed Aspirin [Adult Low Dose Aspirin EC] 81 mg PO DAILY 07/05/16 05/01/19 Atenolol [Tenormin] 100 mg PO DAILY 07/05/16 05/01/19 Isosorbide Mononitrate ER [Imdur] 60 mg PO DAILY 07/05/16 05/01/19 Verapamil HCl [Verapamil ER] 120 mg PO DAILY 07/05/16 05/01/19 lisinopriL [Zestril] 20 mg PO DAILY 07/05/16 05/01/19 Atorvastatin [Lipitor] 40 mg PO DAILY 12/01/18 05/01/19 Potassium 99 mg PO DAILY 12/01/18 05/01/19 Vit A/Vit C/Vit E/Zinc/Copper 1 each PO DAILY 12/01/18 05/01/19 [Vision Formula Softgel] Previous Rx's Medication Instructions Recorded Acetaminophen Tab [Tylenol Tab] 1,000 mg PO Q6HR PRN #30 tablet 05/01/19 Ibuprofen [Motrin] 600 mg PO Q8HR PRN #30 tab 05/01/19 Tamsulosin [Flomax] 0.4 mg PO DAILY #5 cap.er.24h 05/01/19 Ibuprofen [Motrin] 600 mg PO Q8HR PRN #20 tab 09/24/19 Allergies Allergy/AdvReac Type Severity Reaction Status Date / Time No Known Allergies Allergy Verified 05/30/20 20:13 Review of Systems ROS Statement: Those systems with pertinent positive or pertinent negative responses have been documented in the HPI. ROS Other: All systems not noted in ROS Statement are negative. Constitutional: Denies: fever Eyes: Denies: eye pain ENT: Denies: ear pain Respiratory: Denies: cough, dyspnea Cardiovascular: Denies: chest pain, palpitations Endocrine: Reports: fatigue Gastrointestinal: Denies: abdominal pain Genitourinary: Denies: dysuria Musculoskeletal: Denies: back pain Skin: Denies: rash Neurological: Denies: weakness Past Medical History Past Medical History: Hyperlipidemia, Hypertension, Myocardial Infarction ([place]), Osteoarthritis ([place]) Additional Past Medical History / Comment(s): hx eczema, Last Myocardial Infarction Date:: 1998 History of Any Multi-Drug Resistant Organisms: None Reported Past Surgical History: Appendectomy, Heart Catheterization, Hernia Repair, Ton sillectomy Additional Past Surgical History / Comment(s): colonoscopy; hemorroidectomy Past Anesthesia/Blood Transfusion Reactions: No Reported Reaction Past Psychological History: No Psychological Hx Reported Smoking Status: Former smoker Past Alcohol Use History: Abuse, Daily Past Drug Use History: Marijuana - Past Family History Mother Family Medical History: No Reported History General Exam Limitations: no limitations General appearance: alert, in no apparent distress Head exam: Present: normocephalic Eye exam: Present: normal appearance Neck exam: Present: normal inspection Respiratory exam: Present: normal lung sounds bilaterally Cardiovascular Exam: Present: tachycardia, irregular rhythm Expanded Peripheral pulses: 2+: Radial (R), Radial (L), Posterior Tibialis (R), Posterior Tibialis (L) GI/Abdominal exam: Present: soft. Absent: tenderness Extremities exam: Present: normal inspection. Absent: pedal edema, calf tenderness Neurological exam: Present: alert Psychiatric exam: Present: normal affect, normal mood Skin exam: Present: normal color Course Vital Signs 05/30/20 05/30/20 05/30/20 18:17 18:53 19:23 Temperature 98 F Pulse Rate 138 H 128 H 138 H Respiratory 18 18 18 Rate Blood Pressure 134/91 154/102 144/92 O2 Sat by Pulse 97 97 95 Oximetry EKG Findings - EKG Comments: EKG Findings:: A. fib with RVR, rate 133. QRS 84. QT 274. QTC 407. Normal axis. Septal Q waves in V1 and V2. No acute ST change. Medical Decision Making - Medical Decision Making Patient reevaluated and resting comfortably in bed. Heart rate remains around 120. Patient and family updated on results and plan. Case was discussed with practitioner Zoey Mckeon, covering for Dr. Hung, who will admit covering for Dr. Aguilera. - Lab Data Result diagrams: 05/30/20 18:25 05/30/20 18:50 Lab Results 05/30/20 05/30/20 05/30/20 Range/Units 18:25 18:50 18:50 WBC 6.6 (3.8-10.6) k/uL RBC 4.95 (4.30-5.90) m/uL Hgb 16.2 (13.0-17.5) gm/dL Hct 48.2 (39.0-53.0) % MCV 97.3 (80.0-100.0) fL MCH 32.6 (25.0-35.0) pg MCHC 33.5 (31.0-37.0) g/dL RDW 13.0 (11.5-15.5) % Plt Count 240 (150-450) k/uL MPV 6.7 Neutrophils % 61 % Lymphocytes % 23 % Monocytes % 11 % Eosinophils % 2 % Basophils % 1 % Neutrophils # 4.0 (1.3-7.7) k/uL Lymphocytes # 1.5 (1.0-4.8) k/uL Monocytes # 0.7 (0-1.0) k/uL Eosinophils # 0.1 (0-0.7) k/uL Basophils # 0.1 (0-0.2) k/uL PT 10.0 (9.0-12.0) sec INR 0.9 (<1.2) APTT 24.2 (22.0-30.0) sec Sodium 133 L (137-145) mmol/L Potassium 4.7 (3.5-5.1) mmol/L Chloride 99 (98-107) mmol/L Carbon Dioxide 26 (22-30) mmol/L Anion Gap 8 mmol/L BUN 17 (9-20) mg/dL Creatinine 0.76 (0.66-1.25) mg/dL Est GFR (CKD-EPI)AfAm >90 (>60 ml/min/1.73 sqM) Est GFR (CKD-EPI)NonAf >90 (>60 ml/min/1.73 sqM) Glucose 101 H (74-99) mg/dL Calcium 9.7 (8.4-10.2) mg/dL Magnesium 1.8 (1.6-2.3) mg/dL Total Bilirubin 0.8 (0.2-1.3) mg/dL AST 32 (17-59) U/L ALT 22 (4-49) U/L Alkaline Phosphatase 74 (38-126) U/L Troponin I (0.000-0.034) ng/mL Total Protein 7.7 (6.3-8.2) g/dL Albumin 4.7 (3.5-5.0) g/dL 05/30/20 Range/Units 18:50 WBC (3.8-10.6) k/uL RBC (4.30-5.90) m/uL Hgb (13.0-17.5) gm/dL Hct (39.0-53.0) % MCV (80.0-100.0) fL MCH (25.0-35.0) pg MCHC (31.0-37.0) g/dL RDW (11.5-15.5) % Plt Count (150-450) k/uL MPV Neutrophils % % Lymphocytes % % Monocytes % % Eosinophils % % Basophils % % Neutrophils # (1.3-7.7) k/uL Lymphocytes # (1.0-4.8) k/uL Monocytes # (0-1.0) k/uL Eosinophils # (0-0.7) k/uL Basophils # (0-0.2) k/uL PT (9.0-12.0) sec INR (<1.2) APTT (22.0-30.0) sec Sodium (137-145) mmol/L Potassium (3.5-5.1) mmol/L Chloride (98-107) mmol/L Carbon Dioxide (22-30) mmol/L Anion Gap mmol/L BUN (9-20) mg/dL Creatinine (0.66-1.25) mg/dL Est GFR (CKD-EPI)AfAm (>60 ml/min/1.73 sqM) Est GFR (CKD-EPI)NonAf (>60 ml/min/1.73 sqM) Glucose (74-99) mg/dL Calcium (8.4-10.2) mg/dL Magnesium (1.6-2.3) mg/dL Total Bilirubin (0.2-1.3) mg/dL AST (17-59) U/L ALT (4-49) U/L Alkaline Phosphatase (38-126) U/L Troponin I <0.012 (0.000-0.034) ng/mL Total Protein (6.3-8.2) g/dL Albumin (3.5-5.0) g/dL - Radiology Data Radiology results: image reviewed (Chest x-ray shows no acute process) Critical Care Time Critical Care Time: Yes Total Critical Care Time: 32 Disposition Clinical Impression: Atrial fibrillation with RVR Disposition: ADMITTED IP TO THIS HOSP Is patient prescribed a controlled substance at d/c from ED?: No Referrals: Arnol Aguilera MD [Primary Care Provider] - 1-2 days Decision Time: 20:17
[2020-05-30 18:59] LABS: Basophils # (A) 0.1 k/uL (0-0.2); Basophils % (A) 1 %; Eosinophils # (A) 0.1 k/uL (0-0.7); Eosinophils % (A) 2 %; HCT 48.2 % (39.0-53.0); HGB 16.2 gm/dL (13.0-17.5); Lymphocytes # (A) 1.5 k/uL (1.0-4.8); Lymphocytes % (A) 23 %; MCH 32.6 pg (25.0-35.0); MCHC 33.5 g/dL (31.0-37.0); MCV 97.3 fL (80.0-100.0); Mean Platelet Volume 6.7; Monocytes # (A) 0.7 k/uL (0-1.0); Monocytes % (A) 11 %; Neutrophils % (A) 61 %; Platelet Count 240 k/uL (150-450); RBC 4.95 m/uL (4.30-5.90); WBC 6.6 k/uL (3.8-10.6)
[2020-05-30] MEDS ORDERED: DILTIAZEM 125 MG in SODIUM CHLORIDE 0.9% 100 ML IV SCH (19:00)
--- NOTE | 2020-05-30 19:04 | XR ---
EXAMINATION TYPE: XR chest 2V DATE OF EXAM: 05/30/2020 COMPARISON: NONE HISTORY: Dysrhythmia TECHNIQUE: 2 views FINDINGS: Heart is normal. Lungs are clear of infiltrate. There is no heart failure. There are no hil ar masses. Costophrenic angles are fairly clear. There is mild flattening of the diaphragm. IMPRESSION: There is probably some COPD. No acute lung disease.
[2020-05-30 19:07] LABS: ALT 22 U/L (4-49); AST 32 U/L (17-59); African American GFR (CKD) >90 (>60 ml/min/1.73 sqM); Albumin 4.7 g/dL (3.5-5.0); Alkaline Phosphatase 74 U/L (38-126); Anion Gap 8 mmol/L; Blood Urea Nitrogen 17 mg/dL (9-20); Calcium 9.7 mg/dL (8.4-10.2); Carbon Dioxide 26 mmol/L (22-30); Chloride 99 mmol/L (98-107); Glucose 101 mg/dL (74-99); Magnesium 1.8 mg/dL (1.6-2.3); Non-African American GFR(CKD) >90 (>60 ml/min/1.73 sqM); Potassium 4.7 mmol/L (3.5-5.1); Sodium 133 mmol/L (137-145); Total Bilirubin 0.8 mg/dL (0.2-1.3); Total Protein 7.7 g/dL (6.3-8.2)
[2020-05-30 19:11] LABS: INR 0.9 (<1.2); Partial Thromboplastin Time 24.2 sec (22.0-30.0)
[2020-05-30] MEDS ORDERED: HEPARIN SODIUM,PORCINE 5,000 UNIT/ML 1 ML VIAL IV ONE (20:18)
[2020-05-30] MEDS ORDERED: ASPIRIN 81 MG PO STA (20:18)
[2020-05-30] MEDS ORDERED: NITROGLYCERIN SL TABS 0.4 MG TAB SUBLINGUAL PRN (20:18)
[2020-05-30] MEDS ORDERED: HEPARIN SODIUM,PORCINE 5,000 UNIT/ML 1 ML VIAL IV PRN (20:18)
[2020-05-30] MEDS ORDERED: HEPARIN SOD,PORK IN 0.45% NACL 25,000 UNIT in 0.45% NACL 1 250ML.BAG IV SCH (20:30)
[2020-05-31 03:30] LABS: Mean Platelet Volume 6.8; Platelet Count 197 k/uL (150-450)
[2020-05-31 07:41] LABS: Cholesterol 170 mg/dL (<200); HDL Cholesterol 87 mg/dL (40-60); LDL Cholesterol,Calculated 60 mg/dL (0-99); Triglycerides 116 mg/dL (<150)
[2020-05-31] MEDS ORDERED: ASPIRIN 81 MG PO SCH (09:00)
[2020-05-31] MEDS ORDERED: amLODIPine 10 MG TAB PO SCH (09:00)
[2020-05-31] MEDS ORDERED: ISOSORBIDE MONONITRATE ER 60 MG TAB.ER.24H PO SCH (09:00)
[2020-05-31] MEDS ORDERED: ASPIRIN 325 MG TAB PO SCH (09:00)
[2020-05-31] MEDS ORDERED: ATORVASTATIN 40 MG TAB PO SCH (09:00)
[2020-05-31] MEDS ORDERED: APIXABAN 5 MG TAB PO SCH (09:00)
[2020-05-31] MEDS ORDERED: lisinopriL 20 MG TAB PO SCH (09:00)
[2020-05-31] MEDS ORDERED: METOPROLOL SUCCINATE (ER) 100 MG TAB.ER.24H PO SCH (09:00)
--- NOTE | 2020-05-31 09:57 | P.CRDCN ---
History of Present Illness History of present illness: HISTORY OF PRESENTING ILLNESS This is a pleasant 70-year-old male past medical history significant for coronary artery disease status post angioplasty in 1998, hypertension, dyslipidemia, former nicotine dependence and daily alcohol intake. He follows in the office with Dr. Garner. We have been asked to see in consultation for atrial fibrillation. He states over the previous one to 3 weeks he has been having intermittent episodes of unexplained diaphoresis. He also has been feeling increased fatigue. He states he has currently in the process of moving so he attributed this to the extra activity and stressful situation. He has been checking his blood pressure regularly and has noticed it has been consistently elevated prompting him to see his PCP. At that time he was noted to have an irregular heartbeat and was sent to the hospital for further evaluation. He denies ever having had symptoms of palpitations, shortness of breath, dizziness or chest discomfort. DIAGNOSTICS EKG reveals atrial fibrillation with heart rate of 133. Telemetry tracings indicate persistent atrial fibrillation with better controlled ventricular rate. Chest xray underlying COPD with no acute cardiopulmonary process. Laboratory reviewed, CBC unremarkable, sodium 133, potassium 4.7, creatinine 0.76, cardiac enzymes negative 3, magnesium 1.8, LDL 60 and HDL 87. Current cardiac medications include aspirin 81 mg daily, atenolol 100 mg daily, atorvastatin 40 mg daily, Imdur 60 mg daily, verapamil 120 mg daily, lisinopril 20 mg daily and daily potassium supplementation. He underwent a Lexiscan stress test in the office April 2019 that revealed evidence of a fixed defect in the inferior lateral wall with no evidence of reversibility. Most recent echocardiogram obtained April 2019 revealed preserved LV systolic function with ejection fraction 55%, grade 2 diastolic dysfunction, mild aortic regurgitation with a mean gradient across the valve is 6 mmHg, mild to moderate mitral regurgitation. REVIEW OF SYSTEMS At the time of my exam: CONSTITUTIONAL: Denies fever or chills. CARDIOVASCULAR: Denies chest pain, shortness of breath, orthopnea, PND or palpitations. RESPIRATORY: Denies cough. GASTROINTESTINAL: Denies abdominal pain, diarrhea, constipation, nausea or vomi ting. MUSCULOSKELETAL: Denies myalgias. NEUROLOGIC: Denies numbness, tingling, headacbe or weakness. ENDOCRINE: Denies fatigue, weight change, polydipsia or polyurina. GENITOURINARY: Denies burning, hematuria or urgency with micturation. HEMATOLOGIC: Denies history of anemia or bleeding. PHYSICAL EXAMINATION Blood pressure 132/98 heart rate 88 afebrile and maintaining oxygen saturation on room air. CONSTITUTIONAL: No apparent distress. HEENT: Head is normocephalic. Pupils are equal, round. Sclerae anicteric. Mucous membranes of the mouth are moist. No JVD. No carotid bruit. CHEST EXAMINATION: Lungs are clear to auscultation. No chest wall tenderness is noted on palpation or with deep breathing. Diminished bilaterally. HEART EXAMINATION: Irregular rate and rhythm. S1, S2 heard. Systolic ejection murmur at the base, no gallops or rub. ABDOMEN: Soft, nontender. Positive bowel sounds. EXTREMITIES: 1+ peripheral pulses, no lower extremity edema and no calf tenderness. NEUROLOGIC EXAMINATION: Patient is awake, alert and oriented x3. ASSESSMENT New onset paroxysmal atrial fibrillation with rapid ventricular rate Coronary artery disease status post angioplasty in 1998 Hypertension Dyslipidemia Former nicotine dependence Daily alcohol intake PLAN Change verapamil to amlodipine 10 mg daily. Change atenolol to Toprol 100 mg daily. Discontinue Cardizem and heparin infusions. Initiate Eliquis 5 mg twice a day for thromboembolic protection. We will ask casey saw operator to check the patient's monthly cost. Obtain 2-D echocardiogram and Doppler study to assess cardiac structure and function. Thank you kindly for this consultation. Nurse Practitioner note has been reviewed, I agree with a documented findings and plan of care. Patient was seen and examined. Past Medical History Past Medical History: Atrial Fibrillation, Hyperlipidemia, Hypertension, Myocardial Infarction ([place]), Osteoarthritis (OA) Additional Past Medical History / Comment(s): hx eczema, emphysema. Came in 05/24/20 for NOS Afib Last Myocardial Infarction Date:: 1998 History of Any Multi-Drug Resistant Organisms: None Reported Past Surgical History: Appendectomy, Heart Catheterization, Hernia Repair, Tonsillectomy Additional Past Surgical History / Comment(s): colonoscopy; hemorroidectomy Past Anesthesia/Blood Transfusion Reactions: No Reported Reaction Past Psychological History: No Psychological Hx Reported Smoking Status: Former smoker Past Alcohol Use History: Abuse, Daily Additional Past Alcohol Use History / Comment(s): Pt states he drinks 6/ beers per day. QUIT SMOKING 8 MONTHS AGO,SMOKED ON AND OFF SINCE 14 YRS OLD. Past Drug Use History: Marijuana Additional Drug Use History / Comment(s): states no current marijuana use - Past Family History Mother Family Medical History: No Reported History Medications and Allergies Home Medications Medication Instructions Recorded Confirmed Type Aspirin [Adult Low Dose Aspirin EC] 81 mg PO DAILY 07/05/16 05/30/20 History Atenolol [Tenormin] 100 mg PO DAILY 07/05/16 05/30/20 History Isosorbide Mononitrate ER [Imdur] 60 mg PO DAILY 07/05/16 05/30/20 History Verapamil HCl [Verapamil ER] 120 mg PO DAILY 07/05/16 05/30/20 History lisinopriL [Zestril] 20 mg PO DAILY 07/05/16 05/30/20 History Atorvastatin [Lipitor] 40 mg PO DAILY 12/01/18 05/30/20 History Potassium 99 mg PO CRAMER 12/01/18 05/30/20 History Biotin 5,000 mcg PO CRAMER 05/30/20 05/30/20 History Cyanocobalamin (Vitamin B-12) 5,000 mcg PO CRAMER 05/30/20 05/30/20 History [Vitamin B-12] Vit C/E/Zn/Coppr/Lutein/Zeaxan 1 cap PO BID 05/30/20 05/30/20 History [Preservision Areds 2 Softgel] Apixaban [Eliquis] 5 mg PO BID #60 tab 05/31/20 Rx Allergies Allergy/AdvReac Type Severity Reaction Status Date / Time No Known Allergies Allergy Verified 05/30/20 20:13 Physical Exam Vitals: Vital Signs Temp Pulse Pulse Resp BP BP Pulse Ox 05/31/20 04:00 88 16 132/98 96 05/31/20 00:00 92 16 156/80 96 05/30/20 22:17 108 H 16 116/96 98 05/30/20 21:22 114 H 16 108/89 94 L 05/30/20 19:23 138 H 18 144/92 95 05/30/20 18:53 128 H 18 154/102 97 05/30/20 18:17 98 F 138 H 18 134/91 97 Intake and Output 05/30/20 05/31/20 05/31/20 22:59 06:59 14:59 Intake Total 5 64.592 Output Total 550 Balance 5 -485.408 Intake: Intake, IV Titration 5 64.592 Amount Diltiazem 125 mg In 5 Sodium Chloride 0.9% 100 ml @ 7.5 MG/HR 7.5 mls/hr IV .[id number] [facility] Rx#: [id number] Heparin Sod,Pork in 0.45% 64.592 NaCl 25,000 unit In 0.45 % NaCl 1 250ml.bag @ 12 UNITS/KG/HR 8.709 mls/hr IV .Q24H [facility] Rx#: [id number] Output: Urine 550 Other: # Voids 1 Weight 72.575 kg 71.8 kg Results 05/31/20 03:03 05/30/20 18:50 Cardiac Enzymes 05/30/20 05/30/20 05/30/20 Range/Units 18:50 18:50 21:52 AST 32 (17-59) U/L Troponin I <0.012 <0.012 (0.000-0.034) ng/mL 05/31/20 Range/Units 03:03 AST (17-59) U/L Troponin I <0.012 (0.000-0.034) ng/mL Coagulation 05/30/20 05/31/20 Range/Units 18:50 03:03 PT 10.0 (9.0-12.0) sec APTT 24.2 47.9 H (22.0-30.0) sec Lipids 05/31/20 Range/Units 03:03 Triglycerides 116 (<150) mg/dL Cholesterol 170 (<200) mg/dL HDL Cholesterol 87 H (40-60) mg/dL CBC 05/30/20 05/31/20 Range/Units 18:25 03:03 WBC 6.6 (3.8-10.6) k/uL RBC 4.95 (4.30-5.90) m/uL Hgb 16.2 (13.0-17.5) gm/dL Hct 48.2 (39.0-53.0) % Plt Count 240 197 (150-450) k/uL Comprehensive Metabolic Panel 05/30/20 Range/Units 18:50 Sodium 133 L (137-145) mmol/L Potassium 4.7 (3.5-5.1) mmol/L Chloride 99 (98-107) mmol/L Carbon Dioxide 26 (22-30) mmol/L BUN 17 (9-20) mg/dL Creatinine 0.76 (0.66-1.25) mg/dL Glucose 101 H (74-99) mg/dL Calcium 9.7 (8.4-10.2) mg/dL AST 32 (17-59) U/L ALT 22 (4-49) U/L Alkaline Phosphatase 74 (38-126) U/L Total Protein 7.7 (6.3-8.2) g/dL Albumin 4.7 (3.5-5.0) g/dL Current Medications Generic Name Dose Route Start Last Admin Trade Name Freq PRN Reason Stop Dose Admin Aspirin 325 mg 05/31/20 09:00 Aspirin 325 Mg Tab PO DAILY [facility] Atorvastatin Calcium 40 mg 05/31/20 09:00 Atorvastatin 40 Mg Tab PO DAILY [facility] Heparin Sodium (Porcine) 0 unit 05/30/20 20:18 Heparin Sodium,Porcine 5,000 Unit/Ml 1 Ml Vial IV Q6HR PRN Low PTT Protocol Diltiazem HCl 125 mg/ Sodium 125 mls @ 7.5 mls/hr 05/30/20 19:00 05/30/20 20:25 Chloride IV 7.5 mg/hr .[id number] [facility] 7.5 mls/hr Infusion 7.5 MG/HR Heparin Sodium/Sodium Chloride 250 mls @ 8.709 mls/hr 05/30/20 20:30 05/31/20 04:43 25,000 unit/ Sodium Chloride IV 12 units/kg/hr .Q24H [facility] 8.709 mls/hr Titration Protocol 12 UNITS/KG/HR Isosorbide Mononitrate 60 mg 05/31/20 09:00 Isosorbide Mononitrate Er 60 Mg Tab.Er.24h PO DAILY [facility] Lisinopril 20 mg 05/31/20 09:00 Lisinopril 20 Mg Tab PO DAILY [facility] Nitroglycerin 0.4 mg 05/30/20 20:18 Nitroglycerin Sl Tabs 0.4 Mg Tab SUBLINGUAL Q5M PRN Chest Pain Sodium Chloride 10 ml 05/30/20 21:00 05/30/20 21:22 Sodium Chloride 0.9% Flush 10 Ml Syringe IV 10 ml BID [facility] Administration Intake and Output 05/30/20 05/31/20 05/31/20 22:59 06:59 14:59 Intake Total 5 64.592 Output Total 550 Balance 5 -485.408 Intake: Intake, IV Titration 5 64.592 Amount Diltiazem 125 mg In 5 Sodium Chloride 0.9% 100 ml @ 7.5 MG/HR 7.5 mls/hr IV .[id number] [facility] Rx#: [id number] Heparin Sod,Pork in 0.45% 64.592 NaCl 25,000 unit In 0.45 % NaCl 1 250ml.bag @ 12 UNITS/KG/HR 8.709 mls/hr IV .Q24H [facility] Rx#: [id number] Output: Urine 550 Other: # Voids 1 Weight 72.575 kg 71.8 kg 05/31/20 03:03 05/30/20 18:50
[2020-05-31 10:59] VITALS: RESP 18
--- NOTE | 2020-05-31 11:03 | ECHOF ---
Referral Reason:NEW ONSET A FIB MEASUREMENTS -------- HEIGHT: 165.1 cm WEIGHT: 71.7 kg BP: 132/98 RVIDd: 3.3 cm (< 3.3) IVSd: 1.4 cm (0.6 - 1.1) LVIDd: 3.7 cm (3.9 - 5.3) LVPWd: 1.3 cm (0.6 - 1.1) IVSs: 1.8 cm LVIDs: 2.1 cm LVPWs: 1.5 cm LA Diam: 3.4 cm (2.7 - 3.8) LAESV Index (A-L): 41.24 ml/m Ao Diam: 3.6 cm (2.0 - 3.7) AV Cusp: 1.3 cm (1.5 - 2.6) MV EXCURSION: 14.967 mm (> 18.000) MV EF SLOPE: 104 mm/s (70 - 150) EPSS: 0.5 cm RAP: 5.00 mmHg RVSP: 30.55 mmHg FINDINGS -------- Atrial fibrillation. This was a technically adequate study. The left ventricular size is normal. There is moderate concentric left ventricular hypertrophy. O verall left ventricular systolic function is normal with, an EF between 55 - 60 %. The right ventricle is mildly enlarged. LA is severely dilated >40 ml/m2 The right atrium is normal in size. Interatrial and interventricular septum intact. Aortic valve is trileaflet and is mildly thickened. The mitral valve leaflets are mildly thickened. Mild mitral annular calcification present. Mild m itral regurgitation is present. Mild tricuspid regurgitation present. Right ventricular systolic pressure is normal at < 35 mmHg. The pulmonic valve was not well visualized. The aortic root size is normal. Normal inferior vena cava with normal inspiratory collapse consistent with estimated right atrial pre ssure of 5 mmHg. There is no pericardial effusion. CONCLUSIONS -------- 1. The left ventricular size is normal. 2. There is moderate concentric left ventricular hypertrophy. 3. Overall left ventricular systolic function is normal with, an EF between 55 - 60 %. 4. The right ventricle is mildly enlarged. 5. LA is severely dilated >40 ml/m2 6. Aortic valve is trileaflet and is mildly thickened. 7. The mitral valve leaflets are mildly thickened. 8. Mild mitral annular calcification present. 9. Mild mitral regurgitation is present. 10. Mild tricuspid regurgitation present. 11. There is no pericardial effusion. MILKING WORKER: Marisela Reina RDCS
--- NOTE | 2020-05-31 11:29 | P.HPIM ---
History of Present Illness This is a pleasant 70 years old male with past medical history of hyperlipidemia, hypertension, osteoarthritis, atrial fibrillation not on anticoagulation. He is a patient of Dr. Aguilera. Patient was having high blood pressure 140/124 about 2 weeks once his PCP Dr. Aguilera noted to EKG and found them to be in A. fib and septum to the hospital However patient denies chest pain or dyspnea although he has some mild dizziness upon standing up at times. No GI or urinary symptoms. Vital signs stable. At home he was on atenolol 100 mg daily and verapamil 120 mg daily. On admission he was tachycardic 128.138, rest of Vitas looks stable Labs including CBC, BMP liver enzymes, INR are within normal limits. Troponin are less than 0.012. Cholesterol not elevated. Sodium 133. Coronal coronavirus not detected. Chest x-ray: No acute process. EKG showing atrial fibrillation with RVR at 133, QTC 407, no significant ST-T changes. In the emergency room patient was started on aspirin 325 mg and heparin drip Review of Systems CONSTITUTIONAL: No fever, no malaise, no fatigue. HEENT: No recent visual problems or hearing problems. Denied any sore throat. CARDIOVASCULAR: No orthopnea, PND, no palpitations, no syncope. PULMONARY: No shortness of breath, no cough, no hemoptysis. GASTROINTESTINAL: No diarrhea, no nausea, no vomiting, no abdominal pain. Normoactive bowel sounds. NEUROLOGICAL: No headaches, no weakness, no numbness. HEMATOLOGICAL: Denies any bleeding or petechiae. GENITOURINARY: Denies any burning micturition, frequency, or urgency. MUSCULOSKELETAL/RHEUMATOLOGICAL: Denies any joint pain, swelling, or any muscle pain. ENDOCRINE: Denies any polyuria or polydipsia. Past Medical History Past Medical History: Atrial Fibrillation, Hyperlipidemia, Hypertension, Myocardial Infarction ([place]), Osteoarthritis ([place]) Additional Past Medical History / Comment(s): hx eczema, emphysema. Came in 05/24/20 for NOS Afib Last Myocardial Infarction Date:: 1998 History of Any Multi-Drug Resistant Organisms: None Reported Past Surgical History: Appendectomy, Heart Catheterization, Hernia Repair, Tonsillectomy Additional Past Surgical History / Comment(s): colonoscopy; hemorroidectomy Past Anesthesia/Blood Transfusion Reactions: No Reported Reaction Past Psychological History: No Psychological Hx Reported Smoking Status: Former smoker Past Alcohol Use History: Abuse, Daily Additional Past Alcohol Use History / Comment(s): Pt states he drinks 6/ beers per day. QUIT SMOKING 8 MONTHS AGO,SMOKED ON AND OFF SINCE 14 YRS OLD. Past Drug Use History: Marijuana Additional Drug Use History / Comment(s): states no current marijuana use - Past Family History Mother Family Medical History: No Reported History Medications and Allergies Home Medications Medication Instructions Recorded Confirmed Type Aspirin [Adult Low Dose Aspirin EC] 81 mg PO DAILY 07/05/16 05/30/20 History Atenolol [Tenormin] 100 mg PO DAILY 07/05/16 05/30/20 History Isosorbide Mononitrate ER [Imdur] 60 mg PO DAILY 07/05/16 05/30/20 History Verapamil HCl [Verapamil ER] 120 mg PO DAILY 07/05/16 05/30/20 History lisinopriL [Zestril] 20 mg PO DAILY 07/05/16 05/30/20 History Atorvastatin [Lipitor] 40 mg PO DAILY 12/01/18 05/30/20 History Potassium 99 mg PO CRAMER 12/01/18 05/30/20 History Biotin 5,000 mcg PO CRAMER 05/30/20 05/30/20 History Cyanocobalamin (Vitamin B-12) 5,000 mcg PO CRAMER 05/30/20 05/30/20 History [Vitamin B-12] Vit C/E/Zn/Coppr/Lutein/Zeaxan 1 cap PO BID 05/30/20 05/30/20 History [Preservision Areds 2 Softgel] Apixaban [Eliquis] 5 mg PO BID #60 tab 05/31/20 Rx Allergies Allergy/AdvReac Type Severity Reaction Status Date / Time No Known Allergies Allergy Verified 05/30/20 20:13 Physical Exam Vitals: Vital Signs Temp Pulse Pulse Resp BP BP Pulse Ox 05/31/20 04:00 88 16 132/98 96 05/31/20 00:00 92 16 156/80 96 05/30/20 22:17 108 H 16 116/96 98 05/30/20 21:22 114 H 16 108/89 94 L 05/30/20 19:23 138 H 18 144/92 95 05/30/20 18:53 128 H 18 154/102 97 05/30/20 18:17 98 F 138 H 18 134/91 97 Intake and Output 05/30/20 05/31/20 05/31/20 22:59 06:59 14:59 Intake Total 5 64.592 Output Total 550 Balance 5 -485.408 Intake: Intake, IV Titration 5 64.592 Amount Diltiazem 125 mg In 5 Sodium Chloride 0.9% 100 ml @ 7.5 MG/HR 7.5 mls/hr IV .[id number] [facility] Rx#: [id number] Heparin Sod,Pork in 0.45% 64.592 NaCl 25,000 unit In 0.45 % NaCl 1 250ml.bag @ 12 UNITS/KG/HR 8.709 mls/hr IV .Q24H [facility] Rx#: [id number] Output: Urine 550 Other: # Voids 1 Weight 72.575 kg 71.8 kg GENERAL: The patient is alert and oriented x3, not in any acute distress. Well developed, well nourished. HEENT: Pupils are round and equally reacting to light. EOMI. No scleral icterus. No conjunctival pallor. Normocephalic, atraumatic. No pharyngeal erythema. No thyromegaly. CARDIOVASCULAR: S1 and S2 present. No murmurs, rubs, or gallops. PULMONARY: Chest is clear to auscultation, no wheezing or crackles. ABDOMEN: Soft, nontender, nondistended, normoactive bowel sounds. No palpable organomegaly. MUSCULOSKELETAL: No joint swelling or deformity. EXTREMITIES: No cyanosis, clubbing, or pedal edema. NEUROLOGICAL: Gross neurological examination did not reveal any focal deficits. SKIN: No rashes. No petechiae Results CBC & Chem 7: 05/31/20 03:03 05/30/20 18:50 Labs: Abnormal Lab Results - Last 24 Hours (Table) 05/30/20 05/31/20 05/31/20 Range/Units 18:50 03:03 03:03 APTT 47.9 H (22.0-30.0) sec Sodium 133 L (137-145) mmol/L Glucose 101 H (74-99) mg/dL HDL Cholesterol 87 H (40-60) mg/dL Thrombosis Risk Factor Assmnt - Choose All That Apply Any of the Below Risk Factors Present?: No Other Risk Factors: Yes Each Risk Factor Represents 2 Points: Age 61-74 years Other congenital or acquired thrombophilia - If yes, enter type in comment: No Thrombosis Risk Factor Assessment Total Risk Factor Score: 2 Thrombosis Risk Factor Assessment Level: Low Risk Assessment and Plan Assessment: A. fib with RVR Hyperlipidemia Hypertension Osteoarthritis Plan: This is a pleasant 70 years old male who presents with A. fib and RVR. Continue with anticoagulation per cardiology recommendation, continue with aspirin. And follow-up recommendation by home health cna. Continue with Cardizem drip and switched to oral medication when appropriate by home health cna hold atenolol and Cardizem will still decided by home health cna Cartilage is recommended to stop atenolol and start metoprolol 100 mg daily. Also stop Cardizem. Patient is started on Eliquis and will check the co-pay Labs and medication were reviewed.. Continue same treatment. Continue with symptomatic treatment. Resume home medication. Monitor lytes and vitals. DVT and GI prophylaxis. Further recommendations depends on the clinical course of the patient DVT prophylaxis: Eliquis GI Prophylaxis: Pepcid PT/OT: Pending patient declined stating he is walking normally
[2020-05-31 12:08] VITALS: BP 121/91; PULSE 91; TEMP 97.6
== END 2020-05-31 13:46 | disposition home or self-care (01) | DRG 310 ==
LOC: EC 17:14 → 3SCARD 20:18
PROVIDERS: ADMIT Hospitalist; ATTEND Hospitalist
DX: I48.19 Other persistent atrial fibrillation (principal); Z79.82 Long term (current) use of aspirin; E78.5 Hyperlipidemia, unspecified; I25.2 Old myocardial infarction; M19.90 Unspecified osteoarthritis, unspecified site; Z87.891 Personal history of nicotine dependence; Z79.01 Long term (current) use of anticoagulants; Z98.61 Coronary angioplasty status; J43.9 Emphysema, unspecified; Z20.822 Contact with and (suspected) exposure to COVID-19; I25.10 Atherosclerotic heart disease of native coronary artery without angina pectoris; I10 Essential (primary) hypertension
CPT/HCPCS: 36415; 71046; 80053; 80061; 83735; 84484; 85025; 85049; 85610; 85730; 87635; 93005; 93306; 96365; 96366; 96367; 96368; 96375; 99291

== ENCOUNTER 2020-06-02 22:56 | Emergency (ER) | payer MEDICARE ==
[2020-06-02 23:09] VITALS: TEMP 98.1
[2020-06-02] MEDS ORDERED: DILTIAZEM DRIP BOLUS FROM BAG 1 MG SOLN IV ONE (23:20)
[2020-06-02] MEDS ORDERED: SODIUM CHLORIDE 0.9% 1,000 ML IV STA (23:20)
--- NOTE | 2020-06-02 23:21 | ED ---
Arrhythmia/Palpitations HPI - General Chief Complaint: Arrhythmia/Palpitations Stated Complaint: Irregular Heart Beat Time Seen by Provider: 06/02/20 23:14 Source: patient, RN notes reviewed, old records reviewed Mode of arrival: ambulatory Limitations: no limitations - History of Present Illness Initial Comments: 1-year-old male DF for evaluation patient has history of atrial fibrillation coming in with heart rate and palpitations. Recent admission 3 days ago. Patient was discharged home or medication but did have elevated heart rate and some burning today. Patient He states he has no significant symptoms currently, no headache chest pain shor tness with abdominal pain no recent fevers no nausea vomiting and diarrhea and has been taking all medications as prescribed MD Complaint: rapid heart beat, irregular heart beat -: hour(s) Context: occurred during rest Arrhythmia History: atrial fibrillation Associated Symptoms: shortness of breath Treatments Prior to Arrival: other (none) - Related Data Home Medications Medication Instructions Recorded Confirmed Aspirin [Adult Low Dose Aspirin EC] 81 mg PO DAILY 07/05/16 05/30/20 Isosorbide Mononitrate ER [Imdur] 60 mg PO DAILY 07/05/16 05/30/20 lisinopriL [Zestril] 20 mg PO DAILY 07/05/16 05/30/20 Atorvastatin [Lipitor] 40 mg PO DAILY 12/01/18 05/30/20 Potassium 99 mg PO CRAMER 12/01/18 05/30/20 Biotin 5,000 mcg PO CRAMER 05/30/20 05/30/20 Cyanocobalamin (Vitamin B-12) 5,000 mcg PO CRAMER 05/30/20 05/30/20 [Vitamin B-12] Vit C/E/Zn/Coppr/Lutein/Zeaxan 1 cap PO BID 05/30/20 05/30/20 [Preservision Areds 2 Softgel] Previous Rx's Medication Instructions Recorded Apixaban [Eliquis] 5 mg PO BID #60 tab 05/31/20 Metoprolol Succinate (ER) [Toprol 100 mg PO DAILY #30 tab.er.24h 05/31/20 XL] amLODIPine [Norvasc] 10 mg PO DAILY #30 tab 05/31/20 Allergies Allergy/AdvReac Type Severity Reaction Status Date / Time No Known Allergies Allergy Verified 06/02/20 23:09 Review of Systems ROS Statement: Those systems with pertinent positive or pertinent negative responses have been documented in the HPI. ROS Other: All systems not noted in ROS Statement are negative. Past Medical History Past Medical History: Atrial Fibrillation, Hyperlipidemia, Hypertension, Myocardial Infarction ([place]), Osteoarthritis ([place]) Additional Past Medical History / Comment(s): hx eczema, emphysema. Came in 05/24/20 for NOS Afib Last Myocardial Infarction Date:: 1998 History of Any Multi-Drug Resistant Organisms: None Reported Past Surgical History: Appendectomy, Heart Catheterization, Hernia Repair, Tonsillectomy Additional Past Surgical History / Comment(s): colonoscopy; hemorroidectomy Past Anesthesia/Blood Transfusion Reactions: No Reported Reaction Past Psychological History: No Psychological Hx Reported Smoking Status: Former smoker Past Alcohol Use History: Abuse, Daily Past Drug Use History: Marijuana - Past Family History Mother Family Medical History: No Reported History General Exam Limitations: no limitations General appearance: alert, in no apparent distress, anxious Head exam: Present: atraumatic, normocephalic, normal inspection Eye exam: Present: normal appearance, PERRL, EOMI. Absent: scleral icterus, conjunctival injection, periorbital swelling ENT exam: Present: normal exam, mucous membranes moist Neck exam: Present: normal inspection. Absent: tenderness, meningismus, lymphadenopathy Respiratory exam: Present: normal lung sounds bilaterally. Absent: respiratory distress, wheezes, rales, rhonchi, stridor Cardiovascular Exam: Present: tachycardia, irregular rhythm, normal heart sounds. Absent: systolic murmur, diastolic murmur, rubs, gallop, clicks GI/Abdominal exam: Present: soft, normal bowel sounds. Absent: distended, tenderness, guarding, rebound, rigid Extremities exam: Present: normal inspection, full ROM, normal capillary refill. Absent: tenderness, pedal edema, joint swelling, calf tenderness Back exam: Present: normal inspection Neurological exam: Present: alert, oriented X3, CN II-XII intact Psychiatric exam: Present: normal affect, normal mood Skin exam: Present: warm, dry, intact, normal color. Absent: rash Course Vital Signs 06/02/20 06/03/20 06/03/20 23:03 00:42 00:56 Temperature 98.1 F Pulse Rate 140 H 105 H 90 Respiratory 20 16 16 Rate Blood Pressure 173/99 123/104 101/80 O2 Sat by Pulse 98 96 95 Oximetry - Reevaluation(s) Reevaluation #1: 06/03/20 00:20 medical record is reviewed Reevaluation #2: 06/03/20 00:59 Prior ER visit has been reviewed Reevaluation #3: 06/03/20 00:59 Patient's heart rate is currently controlled Reevaluation #4: 06/03/20 01:00 Patient informed results questions answered feels good for discharge EKG Findings - EKG Comments: EKG Findings:: EKG is A. fib 142 QRS 84 QTc 449 Medical Decision Making - Medical Decision Making 70 male DF for evaluation patient presents today for atrial fibrillation with RVR. Patient will be discharged home in his heart is currently controlled - Lab Data Result diagrams: 06/02/20 23:42 06/02/20 23:42 Lab Results 06/02/20 06/02/20 06/02/20 Range/Units 23:42 23:42 23:42 WBC 6.9 (3.8-10.6) k/uL RBC 4.44 (4.30-5.90) m/uL Hgb 14.6 (13.0-17.5) gm/dL Hct 42.8 (39.0-53.0) % MCV 96.5 (80.0-100.0) fL MCH 32.8 (25.0-35.0) pg MCHC 34.0 (31.0-37.0) g/dL RDW 12.5 (11.5-15.5) % Plt Count 217 (150-450) k/uL MPV 6.8 Neutrophils % 62 % Lymphocytes % 23 % Monocytes % 10 % Eosinophils % 3 % Basophils % 1 % Neutrophils # 4.3 (1.3-7.7) k/uL Lymphocytes # 1.6 (1.0-4.8) k/uL Monocytes # 0.7 (0-1.0) k/uL Eosinophils # 0.2 (0-0.7) k/uL Basophils # 0.1 (0-0.2) k/uL PT 10.4 (9.0-12.0) sec INR 1.0 (<1.2) APTT 26.3 (22.0-30.0) sec Sodium 131 L (137-145) mmol/L Potassium 4.4 (3.5-5.1) mmol/L Chloride 97 L (98-107) mmol/L Carbon Dioxide 24 (22-30) mmol/L Anion Gap 10 mmol/L BUN 25 H (9-20) mg/dL Creatinine 0.83 (0.66-1.25) mg/dL Est GFR (CKD-EPI)AfAm >90 (>60 ml/min/1.73 sqM) Est GFR (CKD-EPI)NonAf 89 (>60 ml/min/1.73 sqM) Glucose 103 H (74-99) mg/dL Plasma Lactic Acid Joel (0.7-2.0) mmol/L Calcium 9.3 (8.4-10.2) mg/dL Phosphorus 4.3 (2.5-4.5) mg/dL Magnesium 1.7 (1.6-2.3) mg/dL Total Bilirubin 0.4 (0.2-1.3) mg/dL AST 29 (17-59) U/L ALT 19 (4-49) U/L Alkaline Phosphatase 64 (38-126) U/L Creatine Kinase 106 (55-170) U/L Troponin I (0.000-0.034) ng/mL NT-Pro-B Natriuret Pep pg/mL Total Protein 7.0 (6.3-8.2) g/dL Albumin 4.3 (3.5-5.0) g/dL 06/02/20 06/02/20 06/02/20 Range/Units 23:42 23:42 23:42 WBC (3.8-10.6) k/uL RBC (4.30-5.90) m/uL Hgb (13.0-17.5) gm/dL Hct (39.0-53.0) % MCV (80.0-100.0) fL MCH (25.0-35.0) pg MCHC (31.0-37.0) g/dL RDW (11.5-15.5) % Plt Count (150-450) k/uL MPV Neutrophils % % Lymphocytes % % Monocytes % % Eosinophils % % Basophils % % Neutrophils # (1.3-7.7) k/uL Lymphocytes # (1.0-4.8) k/uL Monocytes # (0-1.0) k/uL Eosinophils # (0-0.7) k/uL Basophils # (0-0.2) k/uL PT (9.0-12.0) sec INR (<1.2) APTT (22.0-30.0) sec Sodium (137-145) mmol/L Potassium (3.5-5.1) mmol/L Chloride (98-107) mmol/L Carbon Dioxide (22-30) mmol/L Anion Gap mmol/L BUN (9-20) mg/dL Creatinine (0.66-1.25) mg/dL Est GFR (CKD-EPI)AfAm (>60 ml/min/1.73 sqM) Est GFR (CKD-EPI)NonAf (>60 ml/min/1.73 sqM) Glucose (74-99) mg/dL Plasma Lactic Acid Joel 1.1 (0.7-2.0) mmol/L Calcium (8.4-10.2) mg/dL Phosphorus (2.5-4.5) mg/dL Magnesium (1.6-2.3) mg/dL Total Bilirubin (0.2-1.3) mg/dL AST (17-59) U/L ALT (4-49) U/L Alkaline Phosphatase (38-126) U/L Creatine Kinase (55-170) U/L Troponin I <0.012 (0.000-0.034) ng/mL NT-Pro-B Natriuret Pep 1080 pg/mL Total Protein (6.3-8.2) g/dL Albumin (3.5-5.0) g/dL Disposition Clinical Impression: Tachycardia, Palpitations, Atrial fibrillation, Atrial fibrillation with RVR Disposition: HOME SELF-CARE Condition: Good Instructions (If sedation given, give patient instructions): A-fib (Atrial Fibrillation) (ED) Is patient prescribed a controlled substance at d/c from ED?: No Referrals: Arnol Aguilera MD [Primary Care Provider] - 1-2 days
[2020-06-02] MEDS ORDERED: DILTIAZEM 125 MG in SODIUM CHLORIDE 0.9% 100 ML IV SCH (23:30)
[2020-06-03 00:24] LABS: Basophils # (A) 0.1 k/uL (0-0.2); Basophils % (A) 1 %; Eosinophils # (A) 0.2 k/uL (0-0.7); Eosinophils % (A) 3 %; HCT 42.8 % (39.0-53.0); HGB 14.6 gm/dL (13.0-17.5); Lymphocytes # (A) 1.6 k/uL (1.0-4.8); Lymphocytes % (A) 23 %; MCH 32.8 pg (25.0-35.0); MCV 96.5 fL (80.0-100.0); Mean Platelet Volume 6.8; Monocytes # (A) 0.7 k/uL (0-1.0); Monocytes % (A) 10 %; Neutrophils # (A) 4.3 k/uL (1.3-7.7); Neutrophils % (A) 62 %; Platelet Count 217 k/uL (150-450); RBC 4.44 m/uL (4.30-5.90); RDW 12.5 % (11.5-15.5); WBC 6.9 k/uL (3.8-10.6)
[2020-06-03 00:38] LABS: ALT 19 U/L (4-49); AST 29 U/L (17-59); African American GFR (CKD) >90 (>60 ml/min/1.73 sqM); Albumin 4.3 g/dL (3.5-5.0); Alkaline Phosphatase 64 U/L (38-126); Anion Gap 10 mmol/L; Blood Urea Nitrogen 25 mg/dL (9-20); Calcium 9.3 mg/dL (8.4-10.2); Carbon Dioxide 24 mmol/L (22-30); Chloride 97 mmol/L (98-107); Creatine Kinase 106 U/L (55-170); Glucose 103 mg/dL (74-99); Magnesium 1.7 mg/dL (1.6-2.3); Non-African American GFR(CKD) 89 (>60 ml/min/1.73 sqM); Phosphorus 4.3 mg/dL (2.5-4.5); Potassium 4.4 mmol/L (3.5-5.1); Sodium 131 mmol/L (137-145); Total Bilirubin 0.4 mg/dL (0.2-1.3)
[2020-06-03] MEDS ORDERED: DILTIAZEM DRIP BOLUS FROM BAG 1 MG SOLN IV ONE (00:39)
[2020-06-03] MEDS ORDERED: METOPROLOL TARTRATE 5 MG/5 ML VIAL IVP STA (00:39)
[2020-06-03 00:44] VITALS: RESP 16
[2020-06-03 00:52] LABS: Partial Thromboplastin Time 26.3 sec (22.0-30.0); Prothrombin Time 10.4 sec (9.0-12.0)
[2020-06-03 01:23] VITALS: BP 106/82; PULSE 85
== END 2020-06-03 01:30 | disposition home or self-care (01) ==
LOC: EC 22:56
DX: I48.91 Unspecified atrial fibrillation (principal); I10 Essential (primary) hypertension; E78.5 Hyperlipidemia, unspecified; I25.2 Old myocardial infarction; M19.90 Unspecified osteoarthritis, unspecified site; Z87.891 Personal history of nicotine dependence; F12.90 Cannabis use, unspecified, uncomplicated
CPT/HCPCS: 36415; 80053; 82550; 83605; 83735; 83880; 84100; 84443; 84484; 85025; 85610; 85730; 93005; 96365; 96366; 96375; 96376; 99285

== ENCOUNTER → 2020-06-15 | Day surgery (SDC) | payer MEDICARE ==
[2020-06-10 12:54] VITALS: BMI 26.6
[~2020-06-15] MED LIST changes: -DEXAMETHASONE SOD PHOSPHATE 10 MG/ML 1 ML VIAL IV ONE; -HEPARIN SODIUM,PORCINE 5,000 UNIT/ML 1 ML VIAL SQ ONE; -MIDAZOLAM 2 MG/2 ML VIAL IV PRN; -ONDANSETRON 4 MG/2 ML VIAL IVP ONE; +PROPOFOL 10 MG/ML 20 ML VIAL IV ONE; +SODIUM CHLORIDE 0.9% 1,000 ML IV SCH
[2020-06-15 06:56] VITALS: RESP 16; TEMP 97.8
--- NOTE | 2020-06-15 08:18 | ECHOT ---
TRANSESOPHAGEAL ECHOCARDIOGRAM INDICATION: Persistent atrial fibrillation to rule out intracardiac thrombus prior to cardioversion. PROCEDURE NOTE: After obtaining informed consent, transesophageal echocardiogram was performed in left lateral position using an Omniplane probe. Local and IV sedation were obtained by the truck hop. Patient tolerated the procedure well without any obvious immediate complications. FINDINGS: 1. There is no intracardiac thrombus within the left atrial appendage, left atrium, right atrium and right ventricle. 2. Left atrium appears enlarged. Right atrium, right ventricle seen within normal limits. 3. Left ventricle has normal size and systolic function. 4. Interatrial Septum: There is no evidence of zrfr-gl-mnfhf shunt by color-flow Doppler or sqein-gb-pcmm shunt by agitated saline contrast study. 5. Mitral valve appears anatomically normal. There is mild to moderate central mitral regurgitation noted. 6. Aortic valve is a 3-leaflet valve. There is trace aortic regurgitation noted. 7. Tricuspid valve shows mild tricuspid regurgitation. 8. Aortic root appears within normal limits. 9. There are mild atherosclerotic changes within the aorta. CONCLUSIONS: 1. No intracardiac thrombus. 2. Normal LV systolic function. 3. Weer-mz-qwpsplhq mitral regurgitation. PLAN: Patient will undergo cardioversion. MMODL / IJN: [id number] /
--- NOTE | 2020-06-15 08:55 | LTR ---
June 15, 2020 Dear Arnol: I performed OPAL cardioversion on [facility]. Detailed procedure notes are enclosed with the letter. I am happy to report you that patient converted to normal sinus rhythm. Following a single synchronized shock and he will continue the Eliquis that he is currently on. Thank you for giving us the privilege to participate in the care of this pleasant gentleman. Sincerely, MD PATIENCE Mcmillan / BETHANY: [id number] /
--- NOTE | 2020-06-15 08:55 | CE ---
CARDIAC ELECTROPHYSIOLOGY REPORT CARDIOVERSION NOTE: INDICATION: Persistent atrial fibrillation. After obtaining informed consent, the patient underwent electrical cardioversion with 300 joules of synchronized DC current. He converted to sinus rhythm following a single shock. The patient had a OPAL that ruled out intracardiac thrombus prior to the procedure and he was adequately anticoagulated with Eliquis. The patient will continue current medications and follow up with me in a week's time. PATIENCE / ISABELN: [id number] /
[2020-06-15 09:09] VITALS: BP 108/72; PULSE 64
== END ==
LOC: CATHCVL 06:21
PROVIDERS: ATTEND Internal Medicine Cardiovascular Disease
DX: I48.19 Other persistent atrial fibrillation (principal); I08.3 Combined rheumatic disorders of mitral, aortic and tricuspid valves; I10 Essential (primary) hypertension; E78.2 Mixed hyperlipidemia; Z95.5 Presence of coronary angioplasty implant and graft; Z87.891 Personal history of nicotine dependence; Z82.49 Family history of ischemic heart disease and other diseases of the circulatory system; Z79.01 Long term (current) use of anticoagulants; Z79.899 Other long term (current) drug therapy; Z79.82 Long term (current) use of aspirin; I25.10 Atherosclerotic heart disease of native coronary artery without angina pectoris
CPT/HCPCS: 93312; 93325; 92960; J2704; 93320

== ENCOUNTER 2020-10-06 08:58 | Day surgery (SDC) | payer MEDICARE ==
[2020-10-04 11:57] VITALS: BMI 26.6
--- NOTE | 2020-10-06 07:54 | P.GSHP ---
History of Present Illness H&P Date: 10/06/20 CHIEF COMPLAINT: Inguinal hernia, right. HISTORY OF PRESENT ILLNESS: The patient is a 70-year-old male who presents with a history of swelling and pain along the right groin. He has noted increased swelling including pain of the area. Now he presents for repair of his inguinal hernia. PAST MEDICAL HISTORY: Please see list and reviewed PAST SURGICAL HISTORY: Please see list and reviewed MEDICATIONS: Please see list and reviewed ALLERGIES: Please see list and reviewed SOCIAL HISTORY: Please see list and reviewed FAMILY HISTORY: Please see list and reviewed REVIEW OF ORGAN SYSTEMS: CONSTITUTIONAL: No reports of fevers or chills. No reports of weight loss despite prior attempts. GI: Denies any blood in stools. PHYSICAL EXAM: VITAL SIGNS: Stable GENERAL: Well-developed pleasant in no acute distress. HEENT: No scleral icterus. Extraocular movements grossly intact. Moist buccal mucosa. NECK: Supple without lymphadenopathy. CHEST: Unlabored respirations. Equal bilateral excursions. CARDIOVASCULAR: Regular rate and rhythm. Distal 2+ pulses. ABDOMEN: Soft, nondistended. No peritoneal signs. Right lower quadrant/groin swelling MUSCULOSKELETAL: No clubbing, cyanosis, or edema. ASSESSMENT: 1. Inguinal hernia, right PLAN: 1. Recommend proceeding robotic inguinal repair with mesh with possible bilateral approach. 2. Benefits and risks of surgical intervention was discussed including possibility of open technique. 3. DVT prophylaxis. 4. Antibiotic prophylaxis. Past Medical History Past Medical History: Atrial Fibrillation, COPD, Hyperlipidemia, Hypertension, Myocardial Infarction ([place]), Osteoarthritis ([place]) Additional Past Medical History / Comment(s): Hx Eczema, Emphysema. Last Myocardial Infarction Date:: 1998 History of Any Multi-Drug Resistant Organisms: None Reported Past Surgical History: Appendectomy, Heart Catheterization, Hernia Repair, Tonsillectomy Additional Past Surgical History / Comment(s): Colonoscopy, Hemorroidectomy. Past Anesthesia/Blood Transfusion Reactions: No Reported Reaction Past Psychological History: Depression Smoking Status: Former smoker Past Alcohol Use History: Daily Additional Past Alcohol Use History / Comment(s): 4-5 beers per day. Started smoking at age 14, quit 04/10/18, smoked 2 PPD. Past Drug Use History: Marijuana Additional Drug Use History / Comment(s): OCCASIONAL USE - MARIJUANA. Aware no alcohol or Marijuana 24 hrs prior to procedure. - Past Family History Mother Family Medical History: No Reported History Medications and Allergies Home Medications Medication Instructions Recorded Confirmed Type Aspirin [Adult Low Dose Aspirin EC] 81 mg PO DAILY 07/05/16 10/04/20 History Isosorbide Mononitrate ER [Imdur] 60 mg PO 1200 07/05/16 10/04/20 History Atorvastatin [Lipitor] 40 mg PO 1200 12/01/18 10/04/20 History Potassium 99 mg PO CRAMER 12/01/18 10/04/20 History Cyanocobalamin (Vitamin B-12) 5,000 mcg PO CRAMER 05/30/20 10/04/20 History [Vitamin B-12] Vit C/E/Zn/Coppr/Lutein/Zeaxan 1 cap PO BID 05/30/20 10/04/20 History [Preservision Areds 2 Softgel] Apixaban [Eliquis] 5 mg PO BID #60 tab 05/31/20 10/04/20 Rx Metoprolol Succinate (ER) [Toprol 100 mg PO 1200 06/10/20 10/04/20 History XL] Amiodarone [Cordarone] 200 mg PO 1200 10/04/20 10/04/20 History amLODIPine [Norvasc] 10 mg PO 1200 10/04/20 10/04/20 History lisinopriL 40 mg PO 1200 10/04/20 10/04/20 History Allergies Allergy/AdvReac Type Severity Reaction Status Date / Time No Known Allergies Allergy Verified 10/04/20 11:39
[~2020-10-06 08:58] MED LIST changes: +ACETAMINOPHEN TAB 500 MG TAB PO PRN; +DEXAMETHASONE SOD PHOSPHATE 4 MG/ML 1 ML VIAL IV ONE; +GABAPENTIN 300 MG CAP PO PRN; +HEPARIN SODIUM,PORCINE/PF 5,000 UNIT/0.5 ML SYRINGE SQ PRN; +LACTATED RINGERS 1,000 ML IV SCH; +LIDOCAINE 1% (10MG/ML) FOR IV START INTRADERMA PRN; +MELOXICAM 7.5 MG TAB PO PRN; +ONDANSETRON 4 MG/2 ML VIAL IVP ONE; -PROPOFOL 10 MG/ML 20 ML VIAL IV ONE; -SODIUM CHLORIDE 0.9% 1,000 ML IV SCH; +TAMSULOSIN 0.4 MG CAP.ER.24H PO PRN
[2020-10-06] MEDS ORDERED: LIDOCAINE 1% INJ 10MG/ML (20 ML MDV) ONE ×2 (09:56→11:28)
[2020-10-06 10:08] LABS: Basophils # (A) 0.1 k/uL (0-0.2); Basophils % (A) 1 %; Eosinophils # (A) 0.1 k/uL (0-0.7); Eosinophils % (A) 3 %; HCT 42.8 % (39.0-53.0); HGB 14.8 gm/dL (13.0-17.5); Lymphocytes # (A) 0.9 k/uL (1.0-4.8); Lymphocytes % (A) 21 %; MCH 34.3 pg (25.0-35.0); MCHC 34.6 g/dL (31.0-37.0); MCV 99.1 fL (80.0-100.0); Mean Platelet Volume 7.4; Monocytes # (A) 0.6 k/uL (0-1.0); Monocytes % (A) 15 %; Neutrophils # (A) 2.4 k/uL (1.3-7.7); Neutrophils % (A) 57 %; Platelet Count 243 k/uL (150-450); RBC 4.32 m/uL (4.30-5.90); RDW 13.2 % (11.5-15.5); WBC 4.3 k/uL (3.8-10.6)
[2020-10-06 10:18] LABS: ALT 75 U/L (4-49); AST 54 U/L (17-59); African American GFR (CKD) >90 (>60 ml/min/1.73 sqM); Albumin 4.1 g/dL (3.5-5.0); Alkaline Phosphatase 86 U/L (38-126); Anion Gap 6 mmol/L; Blood Urea Nitrogen 18 mg/dL (9-20); Calcium 9.6 mg/dL (8.4-10.2); Carbon Dioxide 28 mmol/L (22-30); Chloride 103 mmol/L (98-107); Glucose 104 mg/dL (74-99); Non-African American GFR(CKD) >90 (>60 ml/min/1.73 sqM); Potassium 4.4 mmol/L (3.5-5.1); Sodium 137 mmol/L (137-145); Total Bilirubin 0.5 mg/dL (0.2-1.3); Total Protein 6.9 g/dL (6.3-8.2)
[2020-10-06] MEDS ORDERED: MIDAZOLAM 2 MG/2 ML VIAL IVP ONE (10:26)
[2020-10-06] MEDS ORDERED: fentaNYL (PF) 50 MCG/ML 2 ML AMP IVP ONE ×2 (10:26→10:30)
[2020-10-06] MEDS ORDERED: NALOXONE 0.4 MG/ML 1 ML VIAL ONE (10:38)
[2020-10-06] MEDS ORDERED: FLUMAZENIL 0.1 MG/ML 5 ML VIAL IVP ONE ×2 (10:45→10:52)
[2020-10-06] MEDS ORDERED: NALOXONE 0.4 MG/ML 1 ML VIAL IVP ONE (10:45)
[2020-10-06] MEDS ORDERED: HEPARIN SODIUM,PORCINE 5,000 UNIT/ML 1 ML VIAL SQ ONE (10:58)
--- NOTE | 2020-10-06 10:58 | P.ANPRN ---
Procedure Note - Anesthesia - Nerve Block Performed Bilateral Erector Spinae Single Time Out Performed: Yes Date of Procedure: 10/06/20 Procedure Start Time: 10:25 Procedure Stop Time: 10:33 Location of Patient: PreOp Indication: Requested by Surgeon Specifically requested for management of pain by DrAlma: Alva Haider Sedation Type: Sedate with meaningful contact maintained Preparation: Sterile Prep Position: Prone Needle Types: Pajunk Needle Gauge: 21 Ultrasound used to visualize needle placement: Yes Ultrasound used to observe medication spread: Yes Injectate: 0.5% Ropivacaine (see comment for volume) (15 ml + 15 ml 0.9% NS + dexamethason 4 mg per side) Blood Aspirated: No Pain Paresthesia on Injection Noted: No Resistance on Injection: Normal Image Stored and Saved: Yes Events: Uneventful and Well Tolerated
[2020-10-06] MEDS ORDERED: VASOPRESSIN 20 UNIT/ML 1 ML VIAL ONE (11:28)
[2020-10-06] MEDS ORDERED: PHENYLEPHRINE-0.9% NACL SYG 1,000 MCG/10 ML SYRINGE ONE (11:28)
[2020-10-06] MEDS ORDERED: ROPIVACAINE 5 MG/ML 30 ML VIAL ONE (11:28)
[2020-10-06] MEDS ORDERED: GLYCOPYRROLATE 0.2 MG/ML 2 ML VIAL ONE (11:28)
[2020-10-06] MEDS ORDERED: DEXAMETHASONE SOD PHOSPHATE 4 MG/ML 1 ML VIAL ONE (11:28)
[2020-10-06] MEDS ORDERED: ROCURONIUM 10 MG/ML (5 ML VIAL) IV ONE (11:28)
[2020-10-06] MEDS ORDERED: SODIUM CHLORIDE 0.9% (PF) 10 ML VIAL ONE (11:28)
[2020-10-06] MEDS ORDERED: SUCCINYLCHOLINE CHLORIDE 100 MG/5 ML SYR IV ONE (11:28)
[2020-10-06] MEDS ORDERED: NEOSTIGMINE 1 MG/ML 10 ML VIAL ONE (11:28)
[2020-10-06] MEDS ORDERED: PROPOFOL 10 MG/ML 20 ML VIAL IV ONE (11:28)
[2020-10-06] MEDS ORDERED: KETAMINE 10 MG/ML 20 ML VIAL ONE (11:28)
[2020-10-06] MEDS ORDERED: LACTATED RINGERS 1,000 ML IV ONE ×2 (11:30→14:12)
[2020-10-06] MEDS ORDERED: BUPIVACAINE (PF) 0.25% 30 ML VIAL SQ ONE (11:53)
--- NOTE | 2020-10-06 13:52 | P.OP ---
Date of Procedure: 10/06/20 Description of Procedure: SURGEON: CHELSEA JUDD MD PREOPERATIVE DIAGNOSES: 1. Large right inguinal hernia, recurrent 2. Coronary artery disease status post stent placement 3. History of prior left inguinal hernia. POSTOPERATIVE DIAGNOSES: 1. Large right inguinal hernia, recurrent with incarceration and small bowel obstruction 2. Coronary artery disease status post stent placement 3. Intra-abdominal peritoneal adhesions 4. History of prior left inguinal hernia. OPERATION: 1. Robotic-assisted da Diandra Xi laparoscopic lysis of adhesions 2. Robotic-assisted da Diandra Xi laparoscopic reduction repair of recurrent incarcerated right indirect inguinal hernia with mesh, 11.[address] ANESTHESIA: General with local anesthetic ESTIMATED BLOOD LOSS: 5 mL. SPECIMENS: 1. Incarcerated right inguinal hernia sac COMPLICATIONS: None. FINDINGS: 1. Incarcerated right inguinal hernia over 4 x 3 cm, Nyhus IV, incorporating small bowel with obstruction into scrotum 2. Dense peritoneal adhesions sigmoid colon to left pelvis from previous hernia repair lysed INDICATIONS: The patient is a 70-year-old male who presents with history of recurrent right inguinal hernia. He reports changes in bowel habits as a result. Now he presents for definitive surgical intervention. Laparoscopic versus open and robotic approaches were discussed including bilateral approach. Benefits and risks including bleeding, infection, chronic groin pain, sterility were reviewed. Placement of mesh was also described. Informed consent was obtained. DESCRIPTION: In the preoperative area, an abdominal block was placed per anesthesia. The patient was brought to the operating room and initially laid in supine position. The abdomen had been prepped and draped in standard sterile fashion. Ioban draping was also placed. Prior to incision, a timeout protocol was confirmed with surgical team regarding patient's name including procedures to be performed. Initial positioning for the robotic assisted ports were selected 20 cm superior to the target anatomy. A 0 degree 5 mm laparoscopic trocar entry was performed at the left upper quadrant. The abdomen was insufflated to 15 mmHg which he tolerated well. Diagnostic laparoscopy demonstrated no injury to bowel, viscera or mesentery. Along the right groin, a large indirect hernia involving incarcerated small bowel was found. The appendix and cecum was being pulled into the hernia sac. Separately, along the left groin was completely secured by the sigmoid colon with adhesions. Next, along the epigastrium, 8 mm robot trocar was placed. An 8-mm robotic trocar was placed under direct visualization at the right upper quadrant. An 8 mm port was placed at the left upper quadrant. All trocars were positioned between 10-cm apart from each other. The Got[employer] XI robot was primed, draped, prepared for docking along upper abdomen of the patient. The patient was positioned 14 steep Trendelenburg position. I then went to the GotGame Xi console. The industrial hire sales assistant was at bedside for exchange of the robot arms and equipment. Attention was brought to the right groin. A large right inguinal defect was confirmed as the small intestine was reduced from the right groin. Next, the right groin defect was measured 4 x 3-cm hernia with the sac extending to the scrotum. A large indirect hernia was confirmed, Nyhus type IV. The right inguinal hernia sac was evaginated whereby the peritoneum was scored using Endo scissors with cautery and vessel sealer . As the hernia sac extended into the groin, partial resection of the sac was done. The peritoneal sac of the hernia was stripped. The sac was resected and then passed off for further pathological analysis. The size of the hernia defect was 4 cm x 3 cm with intraoperative films obtained. Using a 2-0 VLOC nonabsorbable, the peritoneal defect of the right inguinal hernia site was closed using a running suture. The defect was found to be completely closed with complete reduction of the right direct inguinal hernia was confirmed. As an onlay, an 11.[address] mesh by Kuznech was cut in half and entered into the abdominal cavity via the 8 mm trocar. The mesh was tacked to the pelvis using 2-0 VLOC 9-inch length sutures. A final endoscopic imaging was obtained. The robot was undocked from the patient's bedside. I then rescrubbed into the case. Insufflation was released from the abdominal cavity and all instruments were removed from the abdominal cavity. Pressure was applied along the left groin. The rest of incisions were reapproximated using 4-0 Monocryl in a running subcuticular fashion. Local anesthetic was placed along the incision including for a bilateral groin block. Incisions were cleansed using dilute hydrogen peroxide. Liquid glue was applied to the skin. At the end of the procedure, the needle, sponge and instrument counts had been verified correct by the surgical appliances salesperson. The patient had tolerated the procedure well and was taken to the postanesthesia care unit in stable condition.
[2020-10-06 14:05] VITALS: TEMP 97.3
[2020-10-06 15:28] VITALS: BP 95/60; PULSE 53; RESP 16
== END 2020-10-06 15:45 | disposition home or self-care (01) ==
LOC: OR 08:58
PROVIDERS: ATTEND Surgery Plastic and Reconstructive Surgery
DX: K40.31 Unilateral inguinal hernia, with obstruction, without gangrene, recurrent (principal); K56.50 Intestinal adhesions [bands], unspecified as to partial versus complete obstruction; I25.10 Atherosclerotic heart disease of native coronary artery without angina pectoris; Z95.5 Presence of coronary angioplasty implant and graft; I48.91 Unspecified atrial fibrillation; L30.9 Dermatitis, unspecified; E78.5 Hyperlipidemia, unspecified; I10 Essential (primary) hypertension; I25.2 Old myocardial infarction; M19.90 Unspecified osteoarthritis, unspecified site; J43.9 Emphysema, unspecified; Z98.890 Other specified postprocedural states; F32.9 Major depressive disorder, single episode, unspecified; Z90.49 Acquired absence of other specified parts of digestive tract; Z87.891 Personal history of nicotine dependence; Z79.01 Long term (current) use of anticoagulants; Z79.82 Long term (current) use of aspirin; Z79.899 Other long term (current) drug therapy
CPT/HCPCS: 49651; 64999; 80053; 85025; 88302; C1781; J2250; J1644; J1100; J2310; J2710; J0690; J2405; J2001; J3010; J2795; J2370; J0330; J2704

== ENCOUNTER → 2021-08-17 | Outpatient (CLI) | payer MEDICARE ==
[2021-08-17 18:05] LABS: African American GFR (CKD) >90 (>60 ml/min/1.73 sqM); Blood Urea Nitrogen 17 mg/dL (9-20); Non-African American GFR(CKD) 85 (>60 ml/min/1.73 sqM)
--- NOTE | 2021-08-18 09:52 | CT ---
EXAMINATION TYPE: CT chest w con DATE OF EXAM: 08/17/2021 COMPARISON: Chest CT January 15, 2019 HISTORY: Lung nodule CT DLP: 319.7 mGycm. Automated Exposure Control for Dose Reduction was Utilized. TECHNIQUE: CT scan of the thorax is performed following with IV Contrast, patient injected with 100m l mL of Isovue 300. FINDINGS: LUNGS: Mild to moderate underlying emphysematous change is redemonstrated. No suspicious new greate r than 5 mm pulmonary nodules or masses. Stable irregular thick walled 9 mm nodule or cavitary lesion left lower lobe axial image 50. Stable focal linear scarring in the lingula sagittal image 97. There is no pleural effusion or pneumothorax seen. The tracheobronchial tree is patent. MEDIASTINUM: There are no greater than 1 cm hilar or mediastinal lymph nodes. No cardiomegaly or pe ricardial effusion is seen. Coronary artery calcification is present. OTHER: Underlying scoliosis redemonstrated. Mild Height loss inferior T12 endplate with sclerosis is now present. Grossly stable anterior 3.7 x 1.5 cm oval hypodense lesion anterior liver axial image 59 . Lesion favored benign in etiology. IMPRESSION: No significant enlarging or new greater than 5 mm pulmonary nodules. Stable 9 to 10 mm ca vitary nodule or lesion left lower lobe.
== END | disposition home or self-care (01) ==
LOC: RADCTMAIN 16:48
PROVIDERS: ATTEND Internal Medicine Critical Care Medicine
DX: R91.1 Solitary pulmonary nodule (principal)
CPT/HCPCS: 82565; 84520; 71260; 36415; Q9967

== ENCOUNTER → 2022-01-05 | Outpatient (CLI) | payer MEDICARE ==
--- NOTE | 2022-01-05 17:54 | US ---
EXAMINATION TYPE: US scrotum with doppler. Grayscale and color Doppler Duplex imaging performed of t marry scrotum. DATE OF EXAM: 01/05/2022 COMPARISON: NONE CLINICAL HISTORY: N50.89 OTHER SPECIFIED DISORDERS OF THE MALE GENIT. Pain lump on left side. EXAM MEASUREMENTS: TESTICLES: Right Testicle: 4.6 x 2.1 x 3.0 cm Left Testicle: 3.7 x 2.5 x 4.6 cm EPIDIDYMIS HEAD: Right Epididymis: 1.5 x .7 x .7 cm Left Epididymis: 4.3 x 2.5 x 4.8 cm Multiple cysts visualized. Doppler performed to assess for testicular vascularity; good bilateral color flow and waveforms are s een. There is no evidence of testicular torsion. Presence of hydroceles: Large left anechoic fluid collection within the scrotum. Trace right fluid c ollection. Presence of varicoceles: No IMPRESSION: 1. Appropriate venous and arterial waveforms to the testes. No evidence of solid mass. 2. Large left hydrocele.
== END | disposition home or self-care (01) ==
LOC: RADUSWWP 16:42
PROVIDERS: ATTEND Family Medicine
DX: N43.3 Hydrocele, unspecified (principal); N50.89 Other specified disorders of the male genital organs
CPT/HCPCS: 76870; 93975

== ENCOUNTER → 2022-03-21 | Outpatient (CLI) | payer MEDICARE ==
[2022-03-21 23:31] LABS: HCT 45.1 % (39.6-50.0); HGB 14.8 g/dL (13.0-17.0); MCH 32.5 pg (27.0-32.0); MCHC 32.8 g/dL (32.0-37.0); MCV 98.9 fL (80.0-97.0); Mean Platelet Volume 9.3 fL (9.5-12.2); NRBC Per 100 WBC 0 /100 WBCS (0.0-0.0); Platelet Count 236 X 10*3/uL (140-440); RBC 4.56 X 10*6/uL (4.40-5.60); RDW 13.3 % (11.5-14.5); WBC 4.23 X 10*3/uL (4.50-10.00)
[2022-03-22 12:13] LABS: African American GFR (CKD) 102.7 (60.0-200.0); Anion Gap 6.7 mmol/L (10.00-18.00); Blood Urea Nitrogen 15.6 mg/dL (9.0-27.0); Carbon Dioxide 30.3 mmol/L (20.0-27.5); Non-African American GFR(CKD) 88.6 (60.0-200.0); Potassium 5.1 mmol/L (3.5-5.5)
== END | disposition home or self-care (01) ==
LOC: LABPAT 14:11
PROVIDERS: ATTEND Internal Medicine Cardiovascular Disease
DX: Z01.812 Encounter for preprocedural laboratory examination (principal); I48.11 Longstanding persistent atrial fibrillation
CPT/HCPCS: 36415; 80051; 82565; 84520; 85027

== ENCOUNTER 2022-03-27 10:14 | Day surgery (SDC) | payer MEDICARE ==
[2022-03-22 13:40] VITALS: BMI 26.6
[~2022-03-27 10:14] MED LIST changes: -ACETAMINOPHEN TAB 500 MG TAB PO PRN; -DEXAMETHASONE SOD PHOSPHATE 4 MG/ML 1 ML VIAL IV ONE; -GABAPENTIN 300 MG CAP PO PRN; -HEPARIN SODIUM,PORCINE/PF 5,000 UNIT/0.5 ML SYRINGE SQ PRN; -LACTATED RINGERS 1,000 ML IV SCH; -LIDOCAINE 1% (10MG/ML) FOR IV START INTRADERMA PRN; -MELOXICAM 7.5 MG TAB PO PRN; -ONDANSETRON 4 MG/2 ML VIAL IVP ONE; +SODIUM CHLORIDE 0.9% 1,000 ML IV SCH; -TAMSULOSIN 0.4 MG CAP.ER.24H PO PRN
[2022-03-27] MEDS ORDERED: LACTATED RINGERS 1,000 ML IV ONE (10:43)
[2022-03-27 10:50] VITALS: TEMP 97.1
[2022-03-27 11:24] LABS: African American GFR (CKD) >90 (>60 ml/min/1.73 sqM); Anion Gap 5 mmol/L; Blood Urea Nitrogen 12 mg/dL (9-20); Calcium 9.2 mg/dL (8.4-10.2); Carbon Dioxide 29 mmol/L (22-30); Chloride 101 mmol/L (98-107); Glucose 100 mg/dL (74-99); Non-African American GFR(CKD) >90 (>60 ml/min/1.73 sqM); Potassium 4.7 mmol/L (3.5-5.1); Sodium 135 mmol/L (137-145)
[2022-03-27] MEDS ORDERED: LIDOCAINE 2% INJ 20 MG/ML (2 ML VIAL) ONE (11:58)
[2022-03-27] MEDS ORDERED: PROPOFOL 10 MG/ML 20 ML VIAL IV ONE (11:58)
[2022-03-27 12:58] VITALS: RESP 16
--- NOTE | 2022-03-27 13:25 | ECHOT ---
TRANSESOPHAGEAL ECHOCARDIOGRAM INDICATION: Persistent atrial fibrillation to rule out intracardiac thrombus prior to cardioversion. PROCEDURE NOTE: After obtaining informed consent, transesophageal echocardiogram was performed in left lateral position using an Omniplane probe. Local and IV sedation were obtained by the agriculture technician. FINDINGS: 1. There is no thrombus within the left atrial appendage, left atrium, right atrium, or right ventricle. 2. Left atrium and right atrium appear enlarged. 3. Left ventricle has normal size and systolic function. 4. Mitral valve shows mild mitral regurgitation. 5. Aortic valve is a 3-leaflet valve. There is mild aortic regurgitation noted. There is mild tricuspid regurgitation noted. 6. Interatrial septum, there is no evidence of gveb-hx-wotel shunt by color-flow Doppler or tiwyp-uq-wtky shunt by agitated saline contrast study. CONCLUSION: 1. No intracardiac thrombus. 2. No evidence of shunting across the interatrial septum. 3. Left ventricular systolic function is normal. 4. There is biatrial enlargement. 5. Fygs-jy-fxdznzqn mitral and mild aortic regurgitation noted. PLAN: The patient will undergo cardioversion. MMODL / IJN: [id number] /
[2022-03-27 14:17] VITALS: BP 138/93; PULSE 70
--- NOTE | 2022-03-28 08:49 | PCN ---
PROCEDURE NOTE PROCEDURE: Cardioversion. INDICATION: Persistent atrial fibrillation. PROCEDURE NOTE: After obtaining informed consent, making sure that the patient is adequately anticoagulated with Eliquis and ruling out an intracardiac thrombus with OPAL, the patient underwent electrical cardioversion with 150 joules of synchronized DC current. The patient converted to sinus rhythm following a single shock, and we will continue the Eliquis that he is on. MMLD / ISABELN: [id number] /
== END 2022-03-27 14:35 | disposition home or self-care (01) ==
LOC: OR 10:14
PROVIDERS: ATTEND Internal Medicine Cardiovascular Disease
DX: I48.19 Other persistent atrial fibrillation (principal); I08.0 Rheumatic disorders of both mitral and aortic valves; I10 Essential (primary) hypertension; E78.5 Hyperlipidemia, unspecified; I25.10 Atherosclerotic heart disease of native coronary artery without angina pectoris; I25.2 Old myocardial infarction; F12.90 Cannabis use, unspecified, uncomplicated; F32.A Depression, unspecified; Z87.891 Personal history of nicotine dependence; Z79.899 Other long term (current) drug therapy; Z79.01 Long term (current) use of anticoagulants; Z98.890 Other specified postprocedural states; Z90.49 Acquired absence of other specified parts of digestive tract; Z90.89 Acquired absence of other organs
CPT/HCPCS: 93312; 93320; 93325; 80048; 92960; J2704; J2001

== ENCOUNTER → 2022-08-02 | Outpatient (CLI) | payer MEDICARE ==
--- NOTE | 2022-08-02 13:17 | XR ---
EXAMINATION TYPE: XR wrist complete LT DATE OF EXAM: 08/02/2022 1:02 PM INDICATION: Patient age:Male; 72 years old; Reason for study: [id number] LEFT WRIST PAIN; COMPARISON: 09/24/2019 TECHNIQUE: left wrist was examined in the. Frontal, navicular, lateral, and oblique. FINDINGS: No acute osseous pathology, joint dislocation, or joint effusion. No evidence of any soft tissue swelling is seen. Multifocal degeneration with mild osteophyte formation worse at the scaphoid trapezium articulation.. IMPRESSION: 1. No significant change from prior exam with scattered osteoarthrosis changes worse at the mid carp als near the distal scaphoid trapezium articulation. 2. No acute osseous pathology.
== END | disposition home or self-care (01) ==
LOC: RADXRMAIN 12:46
PROVIDERS: ATTEND Internal Medicine
DX: M19.032 Primary osteoarthritis, left wrist (principal)

== ENCOUNTER → 2022-08-14 | Outpatient (CLI) | payer MEDICARE ==
[2022-08-14 15:55] LABS: Basophils # (A) 0.05 X 10*3/uL (0.00-0.10); Eosinophils # (A) 0.13 X 10*3/uL (0.04-0.35); Eosinophils % (A) 2.6 %; HCT 45.7 % (39.6-50.0); HGB 14.8 d/dL (12.0-15.0); Lymphocytes # (A) 0.91 X 10*3/uL (0.90-5.00); Lymphocytes % (A) 18.3 %; MCH 32.8 pg (27.0-32.0); MCHC 32.4 d/dL (32.0-37.0); MCV 101.3 FL (80.0-97.0); Mean Platelet Volume 8.9 FL (9.5-12.2); Monocytes # (A) 0.76 X 10*3/uL (0.20-1.00); Monocytes % (A) 15.3 %; NRBC Per 100 WBC 0.02 X 10*3/uL (0.00-0.01); Neutrophils # (A) 3.07 X 10*3/uL (1.80-7.70); Neutrophils % (A) 61.8 %; Platelet Count 212 X 10*3/uL (140-440); RBC 4.51 X 10*6/uL (4.40-5.60); RDW 13.3 % (11.5-14.5); WBC 4.97 X 10*3/uL (4.50-10.00)
[2022-08-14 16:02] LABS: ALT 20 U/L (10-49); AST 24 U/L (14-35); Albumin 4.2 d/dL (3.8-4.9); Albumin/Globulin Ratio 1.62 Ratio (1.60-3.17); Alkaline Phosphatase 77 U/L (41-126); BUN/Creat Ratio 13.29 Ratio (12.00-20.00); Blood Urea Nitrogen 9.3 mg/dL (9.0-27.0); Calcium 9.3 mg/dL (8.7-10.3); Carbon Dioxide 25.4 mmol/L (21.6-31.8); Chloride 97 mmol/L (96-109); Chol/HDL Ratio 2.16 Ratio; Globulin 2.6 d/dL (1.6-3.3); Glucose 90 mg/dL (70-110); LDL Cholesterol,Calculated 75.8 mg/dL (0.0-131.0); Potassium 4.4 mmol/L (3.5-5.5); Sodium 137 mmol/L (135-145); Total Bilirubin 0.4 mg/dL (0.3-1.2); Total Protein 6.8 d/dL (6.2-8.2); Uric Acid 3.5 mg/dL (3.7-8.7); VLDL Calculation 15.86 mg/dL (5.00-40.00)
== END | disposition home or self-care (01) ==
LOC: LABWHC1 11:21
PROVIDERS: ATTEND Internal Medicine
DX: Z11.59 Encounter for screening for other viral diseases (principal); Z12.5 Encounter for screening for malignant neoplasm of prostate; I48.91 Unspecified atrial fibrillation; M25.532 Pain in left wrist
CPT/HCPCS: 36415; 80053; 80061; 84153; 84443; 84550; 85025; 86803

== ENCOUNTER → 2022-10-04 | Outpatient (CLI) | payer MEDICARE ==
--- NOTE | 2022-10-04 14:52 | XR ---
EXAMINATION TYPE: XR ribs LT w pa chest xray, 5 views DATE OF EXAM: 10/04/2022 Comparison: 05/30/2020 Clinical History: 72-year-old male S20.212A CONTUSION OF LEFT FRONT WALL OF THORAX, I Findings: Heart borderline in size. Central interstitial prominence. Some hazy lower lung densities likely rela nimco to overlying soft tissue. No consolidation or pleural effusion. There is a minimally offset fract ure of the left anterolateral 10th rib; no other displaced left rib fracture is seen. Impression: 1. Minimally offset fracture of the left anterolateral 10th rib. 2. Mild interstitial prominence appears in part chronic. Consider bronchitis or chronic asthma.
== END | disposition home or self-care (01) ==
LOC: RADXRMAIN 12:10
PROVIDERS: ATTEND Internal Medicine
DX: S20.212A Contusion of left front wall of thorax, initial encounter (principal); S22.32XA Fracture of one rib, left side, initial encounter for closed fracture

== ENCOUNTER → 2022-10-10 | Outpatient (CLI) | payer MEDICARE ==
[2022-10-10 14:21] LABS: Basophils % (A) 1 %; Eosinophils # (A) 0.1 k/uL (0-0.7); Eosinophils % (A) 2 %; HCT 44.7 % (39.0-53.0); HGB 15.1 gm/dL (13.0-17.5); Lymphocytes # (A) 0.9 k/uL (1.0-4.8); Lymphocytes % (A) 21 %; MCH 33.8 pg (25.0-35.0); MCHC 33.9 g/dL (31.0-37.0); MCV 99.6 fL (80.0-100.0); Mean Platelet Volume 7.5; Monocytes # (A) 0.5 k/uL (0-1.0); Monocytes % (A) 11 %; Neutrophils # (A) 2.8 k/uL (1.3-7.7); Neutrophils % (A) 63 %; Platelet Count 190 k/uL (150-450); RBC 4.48 m/uL (4.30-5.90); RDW 12.9 % (11.5-15.5); WBC 4.5 k/uL (3.8-10.6)
[2022-10-10 17:19] LABS: Albumin 4.5 d/dL (3.8-4.9); Albumin/Globulin Ratio 1.67 Ratio (1.60-3.17); Globulin 2.7 d/dL (1.6-3.3); Protein, Total 7.2 d/dL (6.2-8.2); Total Protein 7.2 d/dL (6.2-8.2)
[2022-10-10 17:21] LABS: ALT 23 U/L (10-49); AST 31 U/L (14-35); Alkaline Phosphatase 87 U/L (41-126); Blood Urea Nitrogen 14.8 mg/dL (9.0-27.0); Calcium 9.9 mg/dL (8.7-10.3); Carbon Dioxide 27.4 mmol/L (21.6-31.8); Chloride 100 mmol/L (96-109); Glucose 82 mg/dL (70-110); Potassium 5.1 mmol/L (3.5-5.5); Sodium 139 mmol/L (135-145); Total Bilirubin 0.5 mg/dL (0.3-1.2)
[2022-10-11 16:16] LABS: Gamma Globulin 1.17 d/dL (0.70-1.50)
== END | disposition home or self-care (01) ==
LOC: LABWHC1 12:44
PROVIDERS: ATTEND Internal Medicine
DX: S22.32XD Fracture of one rib, left side, subsequent encounter for fracture with routine healing (principal)
CPT/HCPCS: 36415; 80053; 84165; 85025

== ENCOUNTER → 2022-12-28 | Outpatient (CLI) | payer MEDICARE ==
[2022-12-28 12:40] LABS: African American GFR (CKD) >90 (>60 ml/min/1.73 sqM); Blood Urea Nitrogen 15 mg/dL (9-20); Non-African American GFR(CKD) 90 (>60 ml/min/1.73 sqM)
--- NOTE | 2022-12-28 13:11 | CT ---
EXAMINATION TYPE: CT chest w con DATE OF EXAM: 12/28/2022 COMPARISON: 08/17/2021, 01/15/2019. HISTORY: Follow-up for nodules. CT DLP: 312 mGycm Automated exposure control for dose reduction was used. TECHNIQUE: CT scan of the chest is performed with IV Contrast, patient injected with 100 mL of Isovue 300. MIP Images are created on CT scanner and reviewed. 3D reconstructed images are created on an independent workstation and reviewed. FINDINGS: Mediastinum and Pam: There is no axillary, mediastinal or hilar lymphadenopathy. Pleural and Pericardial spaces: There are no pleural or pericardial effusions. Upper Abdomen: There are unchanged hypoattenuating lesions within the left lobe of liver. Cardiovascular: There is mild vascular calcification of the thoracic aorta without evidence of aneury smal dilation or dissection. There is severe diffuse coronary artery calcifications. Pulmonary Artery: There are no central pulmonary arterial abnormalities. The examination was not per formed to evaluate for pulmonary embolism. Lung Parenchyma and Airways: There is moderate upper lobe predominant centrilobular emphysema. There is a cyst stable 9 to 10 mm cavitary nodule in the left lower lobe on series 4 image 48. No new or en larging nodules are seen. This is unchanged dating back to 01/15/2019 is favored to be benign given i ts long-term stability. Bones: There is some scattered degenerative changes seen throughout the spine. Mild compression defor mity along the inferior endplate of T12 is likely chronic. There are no acute osseous abnormalities. IMPRESSION: 1. Unchanged cavitary nodule left lower lobe. No specific follow-up recommended at this time given th e long-term stability. 2. Moderate emphysema. 3. Severe coronary artery calcifications.
== END | disposition home or self-care (01) ==
LOC: RADCTMAIN 11:59
PROVIDERS: ATTEND Internal Medicine
DX: J43.2 Centrilobular emphysema (principal); I48.91 Unspecified atrial fibrillation; I10 Essential (primary) hypertension; E78.5 Hyperlipidemia, unspecified; I25.10 Atherosclerotic heart disease of native coronary artery without angina pectoris; M12.9 Arthropathy, unspecified; R91.8 Other nonspecific abnormal finding of lung field
CPT/HCPCS: 82565; 84520; 71260; 36415; Q9967

== ENCOUNTER 2023-01-14 08:44 | Day surgery (SDC) | payer MEDICARE, OTHER ==
[2023-01-09 11:30] VITALS: BMI 26.6
[~2023-01-14 08:44] MED LIST changes: +LACTATED RINGERS 1,000 ML IV SCH
[2023-01-14 09:40] LABS: ALT 22 U/L (4-49); AST 31 U/L (17-59); African American GFR (CKD) >90 (>60 ml/min/1.73 sqM); Albumin 4.6 g/dL (3.5-5.0); Alkaline Phosphatase 74 U/L (38-126); Anion Gap 9 mmol/L; Blood Urea Nitrogen 19 mg/dL (9-20); Carbon Dioxide 32 mmol/L (22-30); Chloride 99 mmol/L (98-107); Glucose 110 mg/dL (74-99); Non-African American GFR(CKD) 87 (>60 ml/min/1.73 sqM); Sodium 140 mmol/L (137-145); Total Bilirubin 0.9 mg/dL (0.2-1.3)
[2023-01-14 09:50] LABS: Basophils % (A) 1 %; Eosinophils # (A) 0.1 k/uL (0-0.7); Eosinophils % (A) 1 %; HCT 48.8 % (39.0-53.0); HGB 16.2 gm/dL (13.0-17.5); Lymphocytes # (A) 1.4 k/uL (1.0-4.8); Lymphocytes % (A) 24 %; MCH 33.3 pg (25.0-35.0); MCHC 33.3 g/dL (31.0-37.0); MCV 100.2 fL (80.0-100.0); Mean Platelet Volume 7.1; Monocytes # (A) 0.6 k/uL (0-1.0); Monocytes % (A) 11 %; Neutrophils # (A) 3.5 k/uL (1.3-7.7); Neutrophils % (A) 60 %; Platelet Count 242 k/uL (150-450); RBC 4.87 m/uL (4.30-5.90); RDW 12.6 % (11.5-15.5); WBC 5.8 k/uL (3.8-10.6)
[2023-01-14] MEDS ORDERED: fentaNYL (PF) 50 MCG/ML 2 ML AMP ONE (10:30)
[2023-01-14] MEDS ORDERED: LIDOCAINE 1% INJ 10MG/ML (20 ML MDV) ONE ×2 (10:30→10:31)
[2023-01-14] MEDS ORDERED: PHENYLEPHRINE 10 MG/ML 5 ML VIAL ONE (10:30)
[2023-01-14] MEDS ORDERED: PROPOFOL 10 MG/ML 20 ML VIAL IV ONE (10:30)
[2023-01-14] MEDS ORDERED: VASOPRESSIN 20 UNIT/ML 1 ML VIAL ONE (10:30)
[2023-01-14] MEDS ORDERED: HEPARIN SODIUM,PORCINE 10,000 UNIT/ML 1 ML VIAL ONE (10:30)
[2023-01-14] MEDS ORDERED: MIDAZOLAM 2 MG/2 ML VIAL ONE (10:30)
--- NOTE | 2023-01-14 10:54 | P.HPCAR ---
History of Present Illness This is Dr. Dunn dictating an H/P on this patient The patient was interviewed and examined IMPRESSION / ASSESSMENT: Persistent atrial fibrillation, symptomatic and refractory to treatment Multiple electrical cardioversions in the past Shortness of breath with exertion and unable to climb stairs Preserved LV systolic function with LVH with moderate left atrial enlargement Mild aortic stenosis Normal TSH PLAN: Proceed with A. fib ablation. PVI and linear ablation the left atrium for persistent atrial fibrillation and left atrial enlargement HPI Patient continues to be short of breath with average activities He remains in atrial fibrillation with suboptimal rate control despite metoprolol and diltiazem No chest discomfort or syncope Mild cough No fever chills ROS: No fever chills or rigors, no cough, phlegm or expectoration, no nausea, vomiting or diarrhea, no hematuria, dysuria, no musculoskeletal complaints, no strokes or seizures, no skin lesions. EXAMINATION: 152/89 mmHg pulse rate 134 beats a minute afebrile Heart sounds are irregular and rapid Breath sounds are reduced bilaterally but there are no rhonchi no crackles No murmurs No lower extremity edema No JVD Soft abdomen nontender REVIEW OF LABS, ECG & MEDICAL DATA White count 5.8 thousand, hemoglobin 16.2 Platelet count 242,000 Normal electrolytes Normal renal function Normal TSH 1.75 Physical Exam Vitals: Vital Signs Temp Pulse Resp BP BP Pulse Ox 01/14/23 09:59 152/89 01/14/23 09:16 97 F L 134 H 18 182/127 184/133 97 Intake and Output 01/13/23 01/14/23 01/14/23 22:59 06:59 14:59 Intake Total 100 Balance 100 Intake: IV 100 Other: Weight 72.5 kg Past Medical History Past Medical History: Atrial Fibrillation, COPD, Hyperlipidemia, Hypertension, Myocardial Infarction (DC), Osteoarthritis (OA) Additional Past Medical History / Comment(s): Hx Eczema, Emphysema. See Dr. Dunn's H&P. Last Myocardial Infarction Date:: 1998 History of Any Multi-Drug Resistant Organisms: None Reported Past Surgical History: Appendectomy, Heart Catheterization, Hernia Repair, Tonsillectomy Additional Past Surgical History / Comment(s): Colonoscopy, Hemorroidectomy. See Dr. Dunn's H&P. Past Anesthesia/Blood Transfusion Reactions: No Reported Reaction Smoking Status: Former smoker - Past Family History Mother Family Medical History: No Reported History Physical Examination Vital Signs Temp Pulse Resp BP BP Pulse Ox 01/14/23 09:59 152/89 01/14/23 09:16 97 F L 134 H 18 182/127 184/133 97 Intake and Output 01/13/23 01/14/23 01/14/23 22:59 06:59 14:59 Intake Total 100 Balance 100 Intake: IV 100 Other: Weight 72.5 kg Results 01/14/23 09:15 01/14/23 09:15 Cardiac Enzymes 01/14/23 Range/Units 09:15 AST 31 (17-59) U/L CBC 01/14/23 Range/Units 09:15 WBC 5.8 (3.8-10.6) k/uL RBC 4.87 (4.30-5.90) m/uL Hgb 16.2 (13.0-17.5) gm/dL Hct 48.8 (39.0-53.0) % Plt Count 242 (150-450) k/uL Comprehensive Metabolic Panel 01/14/23 Range/Units 09:15 Sodium 140 (137-145) mmol/L Potassium 4.0 (3.5-5.1) mmol/L Chloride 99 (98-107) mmol/L Carbon Dioxide 32 H (22-30) mmol/L BUN 19 (9-20) mg/dL Creatinine 0.83 (0.66-1.25) mg/dL Glucose 110 H (74-99) mg/dL Calcium 10.0 (8.4-10.2) mg/dL AST 31 (17-59) U/L ALT 22 (4-49) U/L Alkaline Phosphatase 74 (38-126) U/L Total Protein 8.0 (6.3-8.2) g/dL Albumin 4.6 (3.5-5.0) g/dL Current Medications Generic Name Dose Route Start Last Admin Trade Name Freq PRN Reason Stop Dose Admin Sodium Chloride 1,000 mls @ 20 mls/hr 01/14/23 05:58 01/14/23 09:18 Saline 0.9% IV 02/13/23 05:59 100 mls .Q24H FORREST Administration Lactated Ringer's 1,000 mls @ 20 mls/hr 01/14/23 05:58 Lactated Ringers IV 02/13/23 05:59 .Q24H FORREST Intake and Output 01/13/23 01/14/23 01/14/23 22:59 06:59 14:59 Intake Total 100 Balance 100 Intake: IV 100 Other: Weight 72.5 kg Patient Weight 01/15/23 06:59 Weight 72.5 kg 01/14/23 09:15 01/14/23 09:15
[2023-01-14] MEDS ORDERED: HEPARIN SOD,PORK IN 0.45% NACL 25,000 UNIT in 0.45% NACL 1 250ML.BAG IV ONE (11:15)
[2023-01-14] MEDS ORDERED: LIDOCAINE 1% INJ 10MG/ML (30 ML VIAL-PF) SQ ONE (11:19)
[2023-01-14] MEDS ORDERED: IOPAMIDOL-370 100ML BTL INJ ONE (13:40)
[2023-01-14] MEDS ORDERED: ACETAMINOPHEN IV (For NPO) 1,000 MG in EMPTY BAG 1 BAG IVPB ONE (13:49)
[2023-01-14] MEDS ORDERED: ACETAMINOPHEN TAB 325 MG TAB PO PRN (13:49)
--- NOTE | 2023-01-14 15:05 | P.EPPROC ---
- EP Procedure Note Electrophysiology Procedure Note: PROCEDURE A. fib ablation with PVI, left atrial roof line and left atrial lobe posterior wall linear ablation DIAGNOSIS Persistent Atrial fibrillation, symptomatic, refractory to therapy RESULT No left atrial appendage mass seen on intracardiac echo Pericardial thickening, chronic exudative pericarditis (exudate at the base of the right ventricle and left ventricle and posterior to the left atrium) Successful A. fib ablation/pulmonary vein isolation of all veins using cryo- ablation Complete entrance block in all 4 veins confirmed No evidence for phrenic nerve injury Linear ablation left atrial roof with serial cryoablation lesions Ablation of the posterior wall of the left atrium with serial cryo-ablations Esophageal deflection YES Electrical cardioversion with a synchronized shock across the chest YES PROCEDURE DETAILS Written informed consent prior to procedure. Patient brought to the EP lab. General anesthesia given. Heparin administered. ACT maintained above 300 seconds Patient was hypotensive following intubation. Therefore electrical cardioversion was performed and improvement in blood pressure was noted IV calcium was given since the patient was on high-dose by mouth diltiazem Both groins prepped and draped per protocol and venous sheaths placed. Eso phagus intubated, circa catheter for temperature monitoring an endoscope for possible esophageal deflection. Phrenic nerve monitoring performed. Esophageal temperature monitoring performed. Esophageal deflection performed if circa catheter overlapping with the balloon or circa temperature less than 27.5C Intracardiac echocardiography performed. Pericardium evaluated. Left atrial appendage evaluated. Left atrium evaluated along with pulmonary veins Transseptal catheterization performed under fluoroscopic guidance and intracardiac echo guidance Cryoablation sheath exchanged, balloon catheter along with achieve catheter placed in the left atrium. Pulmonary veins isolated in the following sequence: Left superior pulmonary vein followed by left inferior pulmonary vein, followed by right inferior pulmonary vein and lastly right superior pulmonary vein. Phrenic nerve stimulation along with capture thresholds within the SVC and right superior pulmonary vein to identify the phrenic nerve proximity to the cryo- balloon. Pulmonary veins isolated and confirmed with entrance and exit block. Phrenic nerve integrity confirmed at the end of the procedure Ablation of the left atrial roof performed with sequential lesions from the left superior to the right superior pulmonary veins. Ablation of the electrograms confirmed Ablation of the left atrial posterior wall performed with cannulation of the right inferior and left inferior pulmonary veins Ablation of electrograms confirmed Diagnostic catheters for the high right atrium, His bundle, coronary sinus placed. LA and RA pressures recorded RA pressure: 14/10/10 LA pressure: 18/10/14 Diagnostic EP study with coronary sinus pacing and recording post cardioversion Baseline measurements: Sinus cycle length 839 ms, RI interval 108 ms, QRS 89 ms and QT interval 373 ms AH 71 ms and HV interval 45 ms Venous sheaths were removed and hemostasis assured with a closure device. Patient extubated and transferred to recovery PROCEDURES PERFORMED Diagnostic EP study CS pacing and recording Left and right transseptal catheterization Catheter the mapping of the tachycardia Intracardiac echocardiography Pulmonary vein isolation with transseptal and comprehensive EPS, [id number] Left atrial roof line, +[id number] Linear ablation, posterior wall left atrium, +[id number] Electrical cardioversion with a synchronized shock across the chest [id number]
[2023-01-14] MEDS ORDERED: LACTATED RINGERS 1,000 ML IV ONE (15:19)
[2023-01-14] MEDS ORDERED: SODIUM CHLORIDE 0.9% 1,000 ML IV ONE (15:19)
[2023-01-14] MEDS: APIXABAN 5 MG TAB PO SCH (19:50)
[2023-01-15 07:35] VITALS: BP 136/87; RESP 16; TEMP 98.6
[2023-01-15] MEDS: APIXABAN 5 MG TAB PO SCH (08:18)
[2023-01-15] MEDS ORDERED: COLCHICINE 0.6 MG EACH PO STA (09:16)
--- NOTE | 2023-01-15 09:33 | P.DS ---
Providers Attending physician: Joe Dunn Primary care physician: Jesus Baumann MD Hospital Course: The patient is 72-year-old male who underwent pulmonary vein isolation yesterday with Dr. Dnun. At induction of anesthesia, patient became hypotensive and required cardioversion. Successful pulmonary vein isolation, linear ablation of left atrial roof and ablation of the posterior wall of the left atrium. Patient was noted to have pericardial thickening and chronic exudative pericarditis. Patient interviewed and examined sitting up on the side of the bed. He states he is feeling well. Mild sore throat. He states he does have some discomfort in the chest, which is noted upon deep breathing. No difficulty breathing. No dizziness or lightheadedness. GENERAL: Well-appearing, well-nourished and in no acute distress. NECK: Supple without JVD or thyromegaly. LUNGS: Breath sounds clear to auscultation bilaterally. Respiration equal and unlabored. No wheezes, rales or rhonchi. HEART: Regular rate and rhythm without murmurs, rubs or gallops. S1 and S2 heard. EXTREMITIES: Normal range of motion, no edema. No clubbing or cyanosis. Peripheral pulses intact and strong. Bilateral groin sites open to air. Mild serosanguineous drainage from the right side. TELEMETRY: Sinus rhythm overnight IMPRESSION: Persistent atrial fibrillation, symptomatic and refractory to treatment Status post pulmonary vein isolation Chronic pericarditis, colchicine for one week PLAN: Colchicine 0.6mg daily for 1 week Discontinue cardizem Patient may be discharged after lunch I am dictating on behalf of Dr Joe Dunn's history/physical and assessment/plan. Plan - Discharge Summary Discharge Rx Participant: Yes New Discharge Prescriptions: Discontinued Diltiazem Cd [Cardizem CD] 240 mg PO Q24HR No Action Atorvastatin [Lipitor] 40 mg PO 1200 Apixaban [Eliquis] 5 mg PO BID #60 tab lisinopriL 40 mg PO 1200 Colchicine 0.6 mg PO DAILY Metoprolol Succinate (ER) [Toprol XL] 150 mg PO 1200 Discharge Medication List Atorvastatin [Lipitor] 40 mg PO 1200 12/01/18 [History] Apixaban [Eliquis] 5 mg PO BID #60 tab 05/31/20 [Rx] Metoprolol Succinate (ER) [Toprol XL] 150 mg PO 1200 06/10/20 [History] lisinopriL 40 mg PO 1200 10/04/20 [History] Colchicine 0.6 mg PO DAILY 01/15/23 [History] Follow up Appointment(s)/Referral(s): Lorenzo Hall MD [STAFF PHYSICIAN] - 1 Week Activity/Diet/Wound Care/Special Instructions: Post EP study - Ablation instructions 1. Keep access sites dry for 2 days. 2. No heavy lifting or straining for 2 days. 3. Avoid bending the hips repeatedly for 2 days. 4. You may go up and down stairs slowly Call if the following is noted 1. Bleeding, increasing swelling or pain at the access sites. 2. Increasing chest discomfort, especially upon taking a deep breath. 3. Increasing shortness of breath, at rest or with exertion. 4. Undue cough / phlegm 5. Difficulty or pain while swallowing. 6. Pain or change in color in the extremities. 7. Fever, chills, rigors. 8. Increasing headache or neurologic symptoms. 9. Dizziness, fainting, palpitations Stop diltiazem Continue ELIQUIS and other cardiac medications
[2023-01-15 11:54] VITALS: PULSE 94
[2023-01-15] MEDS ORDERED: lisinopriL 20 MG TAB PO SCH (12:00)
[2023-01-15] MEDS ORDERED: ATORVASTATIN 40 MG TAB PO SCH (12:00)
== END 2023-01-15 13:05 ==
LOC: CATHEP 08:44 → 6NMEDSUR 13:40 → CATHEP 01-15 13:05
PROVIDERS: ATTEND Internal Medicine Clinical Cardiac Electrophysiology
DX: I48.19 Other persistent atrial fibrillation (principal); E78.5 Hyperlipidemia, unspecified; J43.9 Emphysema, unspecified; I31.9 Disease of pericardium, unspecified; I11.9 Hypertensive heart disease without heart failure; M19.90 Unspecified osteoarthritis, unspecified site; I25.2 Old myocardial infarction; Z79.01 Long term (current) use of anticoagulants; Z87.891 Personal history of nicotine dependence; Z79.899 Other long term (current) drug therapy
CPT/HCPCS: 93656; 93657; 86900; 86901; 80053; 84443; 85025; 86850; J2001; Q9967; J1644

== ENCOUNTER → 2023-02-14 | Outpatient (CLI) | payer MEDICARE ==
--- NOTE | 2023-02-15 08:27 | US ---
EXAMINATION TYPE: US scrotum with doppler. Grayscale and color Doppler Duplex imaging performed of mounika tuttle scrotum. 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 Pt states pain is intermittent. EXAM MEASUREMENTS: TESTICLES: Right Testicle: 4.7 x 3.0 x 2.4 cm Left Testicle: 4.7 x 3.0 x 2.3 cm EPIDIDYMIS HEAD: Right Epididymis: 0.4 cm Left Epididymis: 1.7 cm. Multiple cystic areas seen in epi head. Largest = 4.2 x 3.9 x 2.4cm Doppler performed to assess for testicular vascularity; good bilateral color flow and waveforms are s een. There is no evidence of testicular torsion. Presence of hydroceles: Small on right side Presence of varicoceles: Small on right side IMPRESSION: 1. Multiple cystic areas in the left epididymis. Findings could be sequela prior infection. 2. No evidence for intratesticular mass. 3. Appropriate color Doppler flow within the testes.
== END | disposition home or self-care (01) ==
LOC: RADUSWWP 15:41
PROVIDERS: ATTEND Internal Medicine
DX: N50.3 Cyst of epididymis (principal); N44.2 Benign cyst of testis
CPT/HCPCS: 76870; 93975

== ENCOUNTER → 2023-11-21 | Outpatient (CLI) | payer MEDICARE ==
[2023-11-21 15:17] LABS: ALT 18 U/L (10-49); AST 25 U/L (14-35); Albumin 4.3 g/dL (3.8-4.9); Albumin/Globulin Ratio 1.54 Ratio (1.60-3.17); Alkaline Phosphatase 76 U/L (41-126); BUN/Creat Ratio 29.29 Ratio (12.00-20.00); Blood Urea Nitrogen 20.5 mg/dL (9.0-27.0); Calcium 9.5 mg/dL (8.7-10.3); Carbon Dioxide 27.3 mmol/L (21.6-31.8); Chloride 97 mmol/L (96-109); Chol/HDL Ratio 2.55 Ratio; Globulin 2.8 g/dL (1.6-3.3); Glucose 86 mg/dL (70-110); LDL Cholesterol,Calculated 79.3 mg/dL (0.0-131.0); Potassium 4.5 mmol/L (3.5-5.5); Sodium 135 mmol/L (135-145); Total Bilirubin 0.4 mg/dL (0.3-1.2); Total Protein 7.1 g/dL (6.2-8.2)
[2023-11-21 15:31] LABS: Basophils # (A) 0.03 X 10*3/uL (0.00-0.10); Basophils % (A) 0.4 %; Eosinophils # (A) 0.09 X 10*3/uL (0.04-0.35); Eosinophils % (A) 1.2 %; HGB 13.9 g/dL (13.0-17.0); Lymphocytes # (A) 0.93 X 10*3/uL (0.90-5.00); MCH 32.1 pg (27.0-32.0); MCHC 33.1 g/dL (32.0-37.0); Mean Platelet Volume 9.1 FL (9.5-12.2); Monocytes # (A) 0.78 X 10*3/uL (0.20-1.00); Monocytes % (A) 10.1 %; NRBC Per 100 WBC 0 X 10*3/uL (0.00-0.01); Neutrophils # (A) 5.87 X 10*3/uL (1.80-7.70); Neutrophils % (A) 75.7 %; Platelet Count 227 X 10*3/uL (140-440); RBC 4.33 X 10*6/uL (4.40-5.60); RDW 12.8 % (11.5-14.5); WBC 7.75 X 10*3/uL (4.50-10.00)
== END | disposition home or self-care (01) ==
LOC: LABWHC1 09:57
PROVIDERS: ATTEND Internal Medicine
DX: I10 Essential (primary) hypertension
CPT/HCPCS: 36415; 80053; 80061; 84153; 84443; 85025

== ENCOUNTER → 2024-02-12 | Outpatient (CLI) | payer MEDICARE ==
--- NOTE | 2024-02-12 19:36 | XR ---
EXAMINATION TYPE: XR tibia fibula RT DATE OF EXAM: 02/12/2024 4:51 PM COMPARISON: None. CLINICAL INDICATION: Male, 73 years old with history of L97.209 CALF ULCER, TECHNIQUE: 2 view(s) obtained. FINDINGS: No acute fracture or dislocation evident. No cortical erosions evident. Patient's open wound is not c learly identified. Vascular calcification is noted within soft tissues. There is a plantar calcaneal heel spur present. Degenerative changes are at the knee. IMPRESSION: 1. No suspicious changes to suggest acute osteomyelitis. Follow-up can be performed as clinically in dicated [facility], , 02/12/2024 7:34 PM
== END | disposition home or self-care (01) ==
LOC: RADXRMAIN 16:26
PROVIDERS: ATTEND Internal Medicine
DX: M17.11 Unilateral primary osteoarthritis, right knee (principal); L97.209 Non-pressure chronic ulcer of unspecified calf with unspecified severity; M77.31 Calcaneal spur, right foot